=== PATIENT | female | born 1940 | race Caucasian/White ===

== ENCOUNTER 2016-12-11 10:06 | Emergency (ER) | payer OTHER ==
[~2016-12-11 10:06] MED LIST: ALPR0.25 PO; CITA20TA5 PO; ESOM40CA25 PO; MULT1TAB52 PO; MUPI15CR TP; OLME40TA PO; SIMV40TA3 PO; TOPI50TA4 PO; VITA400C36 PO; ZOLP5TAB5 PO
--- NOTE | 2016-12-11 10:34 | ED.ADGEN ---
Past History Past Medical History: GERD, High Cholesterol, Hypertension, Other Past Surgical History: Cholecystectomy, Hysterectomy Smoking: Non-smoker Alcohol Use: None Drug Use: None Adult General HPI HPI Patient is a 76-year-old female presents emergency department complaining of chest pain that occurred 4-5 hours prior to arrival. She is having no pain now. Patient reports that her blood pressure was elevated last night. Then, in the middle of night she woke up with some chest pain. Was nonradiating and had no associated symptoms such as dyspnea, nausea, vomiting, or diaphoresis. She did take an extra blood pressure medication. First thing this morning she called her primary care physician's office and went there. They then sent her to the emergency department. Review of Systems Review of Systems Constitutional: Denies fever or chills [] Eyes: Denies change in visual acuity, redness, or eye pain [] HENT: Denies nasal congestion or sore throat [] Respiratory: Denies cough or shortness of breath [] Cardiovascular: No additional information not addressed in HPI [] GI: Denies abdominal pain, nausea, vomiting, bloody stools or diarrhea [] : Denies dysuria or hematuria [] Musculoskeletal: Denies back pain or joint pain [] Integument: Denies rash or skin lesions [] Neurologic: Denies headache, focal weakness or sensory changes [] Endocrine: Denies polyuria or polydipsia [] Allergies Allergies Allergies Coded Allergies Type Severity Reaction Last Updated Verified Sulfa (Sulfonamide Antibiotics) Allergy Intermediate rash 04/01/14 No tetracycline Allergy Intermediate rash 04/01/14 No Physical Exam Physical Exam Constitutional: Well developed, well nourished, no acute distress, non-toxic appearance. [] HENT: Normocephalic, atraumatic, bilateral external ears normal, oropharynx moist, no oral exudates, nose normal. [] Eyes: PERRLA, EOMI, conjunctiva normal, no discharge. [] Neck: Normal range of motion, no tenderness, supple, no stridor. [] Cardiovascular:Heart rate regular rhythm, no murmur [] Lungs & Thorax: Bilateral breath sounds clear to auscultation [] Abdomen: Bowel sounds normal, soft, no tenderness, no masses, no pulsatile masses. [] Skin: Warm, dry, no erythema, no rash. [] Back: No tenderness, no CVA tenderness. [] Extremities: No tenderness, no cyanosis, no clubbing, ROM intact, no edema. [] Neurologic: Alert and oriented X 3, normal motor function, normal sensory function, no focal deficits noted. [] Psychologic: Affect normal, judgement normal, mood normal. [] Current Patient Data Lab Results Laboratory Tests Test 12/11/16 11:05 12/11/16 11:07 POC Hemoglobin 12.2gm/dL POC Hematocrit 36% POC Sodium 144mmol/L (135-145) POC Potassium 3.9mmol/L (3.5-5.0) POC Chloride 104mmol/L (98-110) POC Total CO2 24mmol/L (23-32) Anion Gap 21mmol/L (6-14) H POC Blood Urea Nitrogen 14mg/dL (8-26) POC Creatinine 1.0mg/dL (0.5-1.4) Glucose Level 97mg/dL (60-99) POC Ionized Calcium ([place]) 1.20mmol/L (1.13-1.32) POC Troponin I 0.00ng/ml (<0.08) EKG EKG EKG interpreted by me, normal sinus rhythm, 70 bpm, left axis, no ST segment elevation. [] Radiology/Procedures Radiology/Procedures Chest x-ray interpreted by me, no acute cardiopulmonary process. [] Course & Med Decision Making Course & Med Decision Making Pertinent Labs and Imaging studies reviewed. (See chart for details) Reassuring workup. Patient remained pain-free during her stay. She was instructed on taking her blood pressure medicine as prescribed. She will follow- up as needed. Return emergency department sooner if she develops new or worsening symptoms. [] Final Impression Final Impression Chest pain [] Problems: Dragon Disclaimer Dragon Disclaimer This electronic medical record was generated, in whole or in part, using a voice recognition dictation system. BRAXTON WINTERS MD Dec 11, 2016 10:34
--- NOTE | 2016-12-11 10:55 | RAD ---
Portable chest, 12/11/2016: History: Chest pain Comparison is made to a study from 12/03/2015. The heart size and pulmonary vascularity are normal. There is tortuosity of the thoracic aorta. No pulmonary infiltrates are seen. There is no evidence of pleural fluid A surgical plate and screws is evident in the lower cervical spine. IMPRESSION: 1. Ectatic aorta. 2. No acute cardiopulmonary abnormality is detected.
[2016-12-11 11:20] VITALS: BP 126/77
[2016-12-11 11:20] LABS: HEMOGLOBIN ISTAT 12.2 gm/dL; POTASSIUM ISTAT 3.9 mmol/L (3.5-5.0)
--- NOTE | 2016-12-11 14:13 | EKG ---
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
== END 2016-12-11 11:40 | disposition home or self-care (01) ==
LOC: ER 10:06
DX: R07.9 Chest pain, unspecified (principal); K21.9 Gastro-esophageal reflux disease without esophagitis; E78.00 Pure hypercholesterolemia, unspecified; I10 Essential (primary) hypertension; Z88.2 Allergy status to sulfonamides; Z88.1 Allergy status to other antibiotic agents
CPT/HCPCS: 71010; 80047; 84484; 93005; 99284-25

== ENCOUNTER → 2017-03-29 | Outpatient (CLI) | payer OTHER ==
[2017-01-26 15:50] VITALS: BP 146/91
[~2017-03-29] MED LIST changes: -OLME40TA PO; +OLME40TA12 PO; -TOPI50TA4 PO; +TOPI50TA8 PO
--- NOTE | 2017-03-29 16:27 | RAD ---
Pelvic ultrasound, 03/29/2017: History: Pelvic pain Transabdominal and transvaginal scans were obtained. The uterus is surgically absent. The ovaries could not be visualized. No pelvic mass or unusual fluid collection is seen. IMPRESSION: 1. Status post hysterectomy. 2. Negative pelvic ultrasound. 3. CT scanning may be useful for more complete evaluation of the pelvis, if clinically indicated.
== END | disposition home or self-care (01) ==
LOC: US 14:48
PROVIDERS: ATTEND Obstetrics & Gynecology
DX: R10.2 Pelvic and perineal pain (principal); Z90.710 Acquired absence of both cervix and uterus
CPT/HCPCS: 76830; 76856

== ENCOUNTER → 2017-07-09 | Outpatient (CLI) | payer MEDICARE, OTHER ==
[2017-01-26 15:50] VITALS: BP 146/91
--- NOTE | 2017-07-09 15:23 | RAD ---
DATE: 07/09/2017 EXAM: MAMMO BHAVESH SCREENING BILATERAL HISTORY: Asymptomatic screening mammogram. COMPARISON: Prior mammograms from 10/06/2015, 05/06/2013 This study was interpreted with the benefit of Computerized Aided Detection (CAD). The breast parenchyma shows scattered fibroglandular densities. Breast parenchyma level B. FINDINGS: Bilateral CC and MLO views of the breasts were performed. Bilateral breast tomosynthesis was performed in CC and MLO projections. Right breast: There are no suspicious microcalcifications, masses or areas of architectural distortion. Right mammogram is stable from prior studies. Left breast: There are no suspicious microcalcifications, masses or areas of architectural distortion. Interval decrease in a circumscribed mass in the lower slightly inner left breast at mid to posterior depth, benign findings. IMPRESSION: Benign findings. Annual screening mammography is recommended. BI-RADS CATEGORY: 2 BENIGN FINDING(S) RECOMMENDED FOLLOW-UP: 12M 12 MONTH FOLLOW-UP PQRS compliance statement: Patient information was entered into a reminder system with a target due date 07/09/2018 for the next mammogram. Mammography is a sensitive method for finding small breast cancers, but it does not detect them all and is not a substitute for careful clinical examination. A negative mammogram does not negate a clinically suspicious finding and should not result in delay in biopsying a clinically suspicious abnormality. "Our facility is accredited by the [employer] Mammography Program."
== END | disposition home or self-care (01) ==
LOC: MAMMO 13:37
PROVIDERS: ATTEND Family Medicine
DX: Z12.31 Encounter for screening mammogram for malignant neoplasm of breast (principal)
CPT/HCPCS: 77063; G0202; 77067

== ENCOUNTER 2017-12-24 13:39 | Observation (INO) | payer OTHER ==
[~2017-12-24] VITALS: Ht 162.6 cm; Wt 63.5 kg
[2017-12-24] MEDS ORDERED: IV NORMAL SALINE 1,000ML 1,000 ML IV SCH (14:08)
[2017-12-24] MEDS ORDERED: 0.9 % SODIUM CHLORIDE 10 ML DISP.SYRIN. IV PRN (14:15)
--- NOTE | 2017-12-24 14:39 | EKG ---
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
[2017-12-24 14:41] LABS: BASO # 0.1 x10^3/uL (0.0-0.2); BASO % 1 % (0-3); EOS % 1 % (0-3); HEMATOCRIT 39.4 % (36.0-47.0); LYMPH # 1.5 x10^3/uL (1.0-4.8); LYMPH % 27 % (24-48); MEAN CORPUSCULAR HEMOGLOBIN 35 pg (25-35); MEAN CORPUSCULAR HGB CONC 35 g/dL (31-37); MEAN CORPUSCULAR VOLUME 97 fL (79-100); MONO # 0.5 x10^3/uL (0.0-1.1); MONO % 9 % (0-9); NEUT # 3.5 x10^3uL (1.8-7.7); NEUT % 63 % (31-73); PLATELET COUNT 253 x10^3/uL (140-400); RED BLOOD COUNT 4.04 x10^6/uL (3.50-5.40); RED CELL DISTRIBUTION WIDTH 12.4 % (11.5-14.5); WHITE BLOOD COUNT 5.5 x10^3/uL (4.0-11.0)
--- NOTE | 2017-12-24 14:43 | RAD ---
Clinical Indication: Mental status change. Technique: Study is dated December 24, 2017. CT images of the head were obtained from the skull base to the vertex without IV contrast. Comparison is from January 26, 2017. One or more of the following individualized dose reduction techniques were utilized for this examination: 1. Automated exposure control 2. Adjustment of the mA and/or kV according to patient size 3. Use of iterative reconstruction technique Findings: There is diffuse, symmetric prominence of the ventricles and subarachnoid spaces consistent with age-related parenchymal volume loss. There are areas of scattered decreased attenuation in the supratentorial white matter. While nonspecific, findings are likely secondary to mild small vessel ischemic disease. There is no hemorrhage, extraaxial fluid collection, mass, or midline shift. There is no large vascular distribution infarct. There are vascular calcifications. The posterior fossa and brainstem are unremarkable. Orbits are normal. The visualized paranasal sinuses are clear. There is no skull fracture appreciated on bone level images. Impression: No acute intracranial findings. Brain parenchymal volume loss and probable small vessel ischemic disease. Critical report was called to Dr. Berger at 1439 hours. Electronically signed by: Gustavo Patel MD (12/24/2017 2:40 PM) [id number]
[2017-12-24 14:55] LABS: ALBUMIN 3.9 g/dL (3.4-5.0); ALBUMIN/GLOBULIN RATIO 1.1 (1.0-1.7); CALCIUM 10.5 mg/dL (8.5-10.1); GFR 53.8; POTASSIUM 3.7 mmol/L (3.5-5.1); TOTAL BILIRUBIN 0.6 mg/dL (0.2-1.0); TOTAL PROTEIN 7.6 g/dL (6.4-8.2)
--- NOTE | 2017-12-24 15:00 | PHYS DOC ---
Past History Past Medical History: GERD, High Cholesterol, Hypertension, UTI Past Surgical History: Cholecystectomy, Hysterectomy Smoking: Non-smoker Alcohol Use: Rarely Drug Use: None Adult General Chief Complaint Chief Complaint: DIZZY/LIGHT HEADED HPI HPI Patient is a pleasant 77-year-old female with a known history of hypertension hyperlipidemia, reflux disease and recurrent UTIs who presents with acute altered mental status changes and shortness of breath. Patient was in her normal state of health at home began having some shortness of breath and laid down on the bed and she felt some confusion as been described as not being oriented where she is remembering the events around the shortness of breath. She denies any chest pain or abdominal pain at the event as far she can remember. She says she feels like she has to take a deep breath and can't catch her breath. She denies any fevers or chills or headache denies any change in vision or change in speech. She is amnestic to the event and she is somewhat confused to the time and date. Patient denies any trauma, denies any recent antibiotics or travel outside the country. Patient had no URI symptoms, no recent fevers or chills. Patient has had no sick contacts or changes in medications. Symptoms began about 30 minutes prior to arrival witnessed by her Review of Systems Review of Systems Constitutional: Denies fever or chills [] Eyes: Denies change in visual acuity, redness, or eye pain [] HENT: Denies nasal congestion or sore throat [] Respiratory: Positive for shortness of breath negative for cough Cardiovascular: No additional information not addressed in HPI [] GI: Denies abdominal pain, nausea, vomiting, bloody stools or diarrhea [] : Denies dysuria or hematuria [] Musculoskeletal: Denies back pain or joint pain [] Integument: Denies rash or skin lesions [] Neurologic: Denies headache, focal weakness or sensory changes changes in mental status include memory issues to the event and no seizure activity witnessed[] Endocrine: Denies polyuria or polydipsia [] All other systems were reviewed and found to be within normal limits, except as documented in this note. Current Medications Current Medications Current Medications Medications (Trade) Dose Ordered Sig/Sweta Start Time Stop Time Status Last Admin Dose Admin Sodium Chloride 1,000 ml @ 1,000 mls/hr Q1H 12/24/17 14:08 12/24/17 15:07 12/24/17 14:41 1,000 MLS/HR Sodium Chloride (Normal Saline Flush) 10 ml QSHIFT PRN 12/24/17 14:15 Allergies Allergies Allergies Coded Allergies Type Severity Reaction Last Updated Verified Sulfa (Sulfonamide Antibiotics) Allergy Intermediate rash 04/01/14 No tetracycline Allergy Intermediate rash 04/01/14 No Physical Exam Physical Exam Constitutional: Well developed, well nourished, no acute distress, non-toxic appearance. [] HENT: Normocephalic, atraumatic, bilateral external ears normal, oropharynx dry with out erythema no tonsillar hypertrophy, no oral exudates, nose normal. [] Eyes: PERRLA, EOMI, conjunctiva normal, no discharge. [] Neck: Normal range of motion, no tenderness, supple, no stridor. [] Cardiovascular:Heart rate regular rhythm, no murmur [] Lungs & Thorax: Bilateral breath sounds clear to auscultation [] Abdomen: Bowel sounds normal, soft, no tenderness, no masses, no pulsatile masses. [] Skin: Warm, dry, no erythema, no rash. [] Back: No tenderness, no CVA tenderness. [] Extremities: No tenderness, no cyanosis, no clubbing, ROM intact, no edema. [] Neurologic: Alert and oriented X 3, normal motor function, normal sensory function, no focal deficits noted. [] Psychologic: Patient seems somewhat confused but only to the event hand approximately her to the ER she is aware of things that began after the event and before the event Center initial presentation my stroke scale recorded at the bedside and states only one based on her inability to answer question correctly about location and time 1a. Level of consciousness: 0 = Alert; keenly responsive. 1 = Not alert; but arousable by minor stimulation to obey, answer, or respond. 2 = Not alert; requires repeated stimulation to attend, or is obtunded and requires strong or painful stimulation to make movements (not stereotyped). 3 = Responds only with reflex motor or autonomic effects or totally unresponsive , flaccid, and areflexic. 1b. LOC questions: 0 = Answers both questions correctly. 1 = Answers one question correctly. 2 = Answers neither question correctly. 1c. LOC commands: 0 = Performs both tasks correctly. 1 = Performs one task correctly. 2 = Performs neither task correctly. 2. Best gaze: 0 = Normal. 1 = Partial gaze palsy; gaze is abnormal in one or both eyes, but forced deviation or total gaze paresis is not present. 2 = Forced deviation, or total gaze paresis not overcome by the oculocephalic maneuver. 3. Visual: 0 = No visual loss. 1 = Partial hemianopia. 2 = Complete hemianopia. 3 = Bilateral hemianopia (blind including cortical blindness). 4. Facial palsy: 0 = Normal symmetrical movements. 1 = Minor paralysis (flattened nasolabial fold, asymmetry on smiling). 2 = Partial paralysis (total or near-total paralysis of lower face). 3 = Complete paralysis of one or both sides (absence of facial movement in the upper and lower face). 5. Motor arm: 0 = No drift; limb holds 90 (or 45) degrees for full 10 seconds. 1 = Drift; limb holds 90 (or 45) degrees, but drifts down before full 10 seconds ; does not hit bed or other support. 2 = Some effort against gravity; limb cannot get to or maintain (if cued) 90 ( or 45) degrees, drifts down to bed, but has some effort against gravity. 3 = No effort against gravity; limb falls. 4 = No movement. UN = Amputation or joint fusion, explain: 5a. Left arm 5b. Right arm 6. Motor le = No drift; leg holds 30-degree position for full 5 seconds. 1 = Drift; leg falls by the end of the 5-second period but does not hit bed. 2 = Some effort against gravity; leg falls to bed by 5 seconds, but has some effort against gravity. 3 = No effort against gravity; leg falls to bed immediately. 4 = No movement. UN = Amputation or joint fusion, explain: 6a. Left leg 6b. Right leg 7. Limb ataxia: 0 = Absent. 1 = Present in one limb. 2 = Present in two limbs. UN = Amputation or joint fusion 8. Sensory: 0 = Normal; no sensory loss. 1 = Udyo-xi-ntlsrtyo sensory loss; patient feels pinprick is less sharp or is dull on the affected side; or there is a loss of superficial pain with pinprick , but patient is aware of being touched. 2 = Severe to total sensory loss; patient is not aware of being touched in the face, arm, and leg. 9. Best language: 0 = No aphasia; normal. 1 = Srhv-mc-qmuukbiz aphasia; some obvious loss of fluency or facility of comprehension, without significant limitation on ideas expressed or form of expression. Reduction of speech and/or comprehension, however, makes conversation about provided materials difficult or impossible. For example, in conversation about provided materials, examiner can identify picture or naming card content from patient's response. 2 = Severe aphasia; all communication is through fragmentary expression; great need for inference, questioning, and guessing by the listener. Range of information that can be exchanged is limited; listener carries burden of communication. Examiner cannot identify materials provided from patient response. 3 = Mute, global aphasia; no usable speech or auditory comprehension. 10. Dysarthria: 0 = Normal. 1 = Lhhv-pp-rfeglgkz dysarthria; patient slurs at least some words and, at worst , can be understood with some difficulty. 2 = Severe dysarthria; patient's speech is so slurred as to be unintelligible in the absence of or out of proportion to any dysphasia, or is mute/anarthric. UN = Intubated or other physical barrier, explain: 11. Extinction and inattention (formerly neglect): 0 = No abnormality. 1 = Visual, tactile, auditory, spatial, or personal inattention or extinction to bilateral simultaneous stimulation in one of the sensory modalities. 2 = Profound sterling-inattention or extinction to more than one modality; does not recognize own hand or orients to only one side of space. Current Patient Data Lab Results Laboratory Tests Test 12/24/17 14:04 12/24/17 14:27 Glucose (Fingerstick) 109 mg/dL (70-99) H White Blood Count 5.5 x10^3/uL (4.0-11.0) Red Blood Count 4.04 x10^6/uL (3.50-5.40) Hemoglobin 14.0 g/dL (12.0-15.5) Hematocrit 39.4 % (36.0-47.0) Mean Corpuscular Volume 97 fL (79-100) Mean Corpuscular Hemoglobin 35 pg (25-35) Mean Corpuscular Hemoglobin Concent 35 g/dL (31-37) Red Cell Distribution Width 12.4 % (11.5-14.5) Platelet Count 253 x10^3/uL (140-400) Neutrophils (%) (Auto) 63 % (31-73) Lymphocytes (%) (Auto) 27 % (24-48) Monocytes (%) (Auto) 9 % (0-9) Eosinophils (%) (Auto) 1 % (0-3) Basophils (%) (Auto) 1 % (0-3) Neutrophils # (Auto) 3.5 x10^3uL (1.8-7.7) Lymphocytes # (Auto) 1.5 x10^3/uL (1.0-4.8) Monocytes # (Auto) 0.5 x10^3/uL (0.0-1.1) Eosinophils # (Auto) 0.0 x10^3/uL (0.0-0.7) Basophils # (Auto) 0.1 x10^3/uL (0.0-0.2) Erythrocyte Sedimentation Rate Pending EKG EKG []EKG read by me, EKG of 2:35 PM demonstrates a sinus rhythm with a P wave there were QRS there is significant left axis deviation very small poor R-wave progression with a AK interval 140 which is normal, QRS width of 86 which is normal, QTC of 423 which is normal, patient is a Q-wave in the anterior leads specifically V1 which may or percent an old anterior ischemic event this is an abnormal EKG but there is no acute ST segment changes consistent with acute cord ischemia at this time Radiology/Procedures Radiology/Procedures [] IMAGING REPORT Signed PATIENT: ABY JONES ACCOUNT: [id number] : 1940 LOCATION: ER AGE: 77 SEX: F EXAM STATUS: REG ER ORD. PHYSICIAN: LORNA HARLEY MD REASON: sob with ams PROCEDURE: CT HEAD WO CONTRAST Clinical Indication: Mental status change. Technique: Study is dated December 24, 2017. CT images of the head were obtained from the skull base to the vertex without IV contrast. Comparison is from January 26, 2017. One or more of the following individualized dose reduction techniques were utilized for this examination: 1. Automated exposure control 2. Adjustment of the mA and/or kV according to patient size 3. Use of iterative reconstruction technique Findings: There is diffuse, symmetric prominence of the ventricles and subarachnoid spaces consistent with age-related parenchymal volume loss. There are areas of scattered decreased attenuation in the supratentorial white matter. While nonspecific, findings are likely secondary to mild small vessel ischemic disease. There is no hemorrhage, extraaxial fluid collection, mass, or midline shift. There is no large vascular distribution infarct. There are vascular calcifications. The posterior fossa and brainstem are unremarkable. Orbits are normal. The visualized paranasal sinuses are clear. There is no skull fracture appreciated on bone level images. Impression: No acute intracranial findings. Brain parenchymal volume loss and probable small vessel ischemic disease. Critical report was called to Dr. Harley at [address] [place] [address] IMAGING REPORT Signed PATIENT: ABY JONES ACCOUNT: [id number] : 1940 LOCATION: ER AGE: 77 SEX: F EXAM STATUS: REG ER ORD. PHYSICIAN: LORNA HARLEY MD REASON: sob PROCEDURE: CHEST AP ONLY INDICATION: Short of air and dizziness. TECHNIQUE: AP portable chest radiograph was obtained. Comparison is from January 26, 2017. FINDINGS: The lungs are clear. The heart is not enlarged. There is no heart failure. There is atheromatous disease in the thoracic aorta. There are degenerative changes in the spine. Leads overlie the patient. Patient's chin obscures part of the left apex. IMPRESSION: No acute thoracic findings. Electronically signed by: Gustavo Patel MD (12/24/2017 3:07 PM) [id number] DICTATED AND SIGNED BY: GUSTAVO PATEL MD DATE: 12/24/17 1506 CC: LORNA HARLEY MD; LYNN DENTON MD ~ Course & Med Decision Making Course & Med Decision Making Pertinent Labs and Imaging studies reviewed. (See chart for details) []Symptoms with acute onset of difficulty breathing and some changes in mental status. It was activated of the code stroke although her only identifiable issue is with memory to the event and disorientation to time and place. Patient has a stroke scale of 1 upon arrival. Given the duration of symptoms patient had a CT scan read by radiology reviewed by me that demonstrated no acute intercranial mass or signs of infection time report was 2:40 PM Patient's stroke scale of 1 and no other symptoms and she's been intermittent for memory issues. I will consult neurology for decision to use TPA or not. Beam House Inspector note Dr. Torres neurology services Beam House Inspector called at of the service service called initially at 3 PM Consult called back at called back at 306 PM Discussed the case I presented and they agreed with admission. We talked about the use utilization of TPA in this case. Based on patient's symptoms and a social when he did not recommended at this time but did admit that a carotid Doppler and teething evaluation for cardiac versus COUTIERIER cause of her memory loss and shortness of breath with very appropriate. Given the fact that we will within the three-hour window for TPA and I agreed his assessment and patient will get an aspirin. She is resting comfortably Laboratory Tests Test 12/24/17 14:04 12/24/17 14:27 12/24/17 15:00 12/24/17 15:20 Glucose (Fingerstick) 109 mg/dL (70-99) H White Blood Count 5.5 x10^3/uL (4.0-11.0) Red Blood Count 4.04 x10^6/uL (3.50-5.40) Hemoglobin 14.0 g/dL (12.0-15.5) Hematocrit 39.4 % (36.0-47.0) Mean Corpuscular Volume 97 fL (79-100) Mean Corpuscular Hemoglobin 35 pg (25-35) Mean Corpuscular Hemoglobin Concent 35 g/dL (31-37) Red Cell Distribution Width 12.4 % (11.5-14.5) Platelet Count 253 x10^3/uL (140-400) Neutrophils (%) (Auto) 63 % (31-73) Lymphocytes (%) (Auto) 27 % (24-48) Monocytes (%) (Auto) 9 % (0-9) Eosinophils (%) (Auto) 1 % (0-3) Basophils (%) (Auto) 1 % (0-3) Neutrophils # (Auto) 3.5 x10^3uL (1.8-7.7) Lymphocytes # (Auto) 1.5 x10^3/uL (1.0-4.8) Monocytes # (Auto) 0.5 x10^3/uL (0.0-1.1) Eosinophils # (Auto) 0.0 x10^3/uL (0.0-0.7) Basophils # (Auto) 0.1 x10^3/uL (0.0-0.2) Erythrocyte Sedimentation Rate 55 (0-25) H D-Dimer (Monik) 0.40 mg/L (0.00-0.50) Sodium Level 138 mmol/L (136-145) Potassium Level 3.7 mmol/L (3.5-5.1) Chloride Level 98 mmol/L (98-107) Carbon Dioxide Level 27 mmol/L (21-32) Anion Gap 13 (6-14) Blood Urea Nitrogen 16 mg/dL (7-20) Creatinine 1.0 mg/dL (0.6-1.0) Estimated GFR (Cockcroft-Gault) 53.8 BUN/Creatinine Ratio 16 (6-20) Glucose Level 105 mg/dL (70-99) H Calcium Level 10.5 mg/dL (8.5-10.1) H Magnesium Level 2.0 mg/dL (1.8-2.4) Total Bilirubin 0.6 mg/dL (0.2-1.0) Aspartate Amino Transferase (AST) 31 U/L (15-37) Alanine Aminotransferase (ALT) 24 U/L (14-59) Alkaline Phosphatase 72 U/L (46-116) Troponin I Quantitative < 0.017 ng/mL (0-0.055) Total Protein 7.6 g/dL (6.4-8.2) Albumin 3.9 g/dL (3.4-5.0) Albumin/Globulin Ratio 1.1 (1.0-1.7) Lactic Acid Level 1.3 mmol/L (0.4-2.0) Urine Collection Type Unknown Urine Color Straw Urine Clarity Clear Urine pH 7.0 Urine Specific [place] 1.010 Urine Protein Neg (NEG-TRACE) Urine Glucose (UA) Neg mg/dL (NEG) Urine Ketones (Stick) 40 mg/dL (NEG) Urine Blood Neg (NEG) Urine Nitrite Neg (NEG) Urine Bilirubin Neg (NEG) Urine Urobilinogen Dipstick 0.2 mg/dL (0.2 mg/dL) Urine Leukocyte Esterase Trace (NEG) Urine RBC 0 /HPF (0-2) Urine WBC Occ /HPF (0-4) Urine Squamous Epithelial Cells Occ /LPF Urine Bacteria 0 /HPF (0-FEW) Patient's CBC, CMP, urinalysis, proBNP, troponin all within normal limits or not significantly abnormal enough to cause symptoms. Patient's calcium level was managed at 10.5 but not high enough to be causing symptoms. Beam House Inspector note: Dr. LEDA WHELAN Beam House Inspector called at of the service service internal medicine called at 3:10 PM Consult called back at 3:10 PM Discussed the case I presented and they agreed with admission. Time of acceptance 3:10 PM "I have assessed this patient clinically and believe that their condition requires an admission to the hospital. After consulting the admitting physician about this case, they have asked that I admit this patient to their service as an inpatient based on the clinical presentation and my impression." Impression: Dizziness, altered mental status memory issues, Dragon Disclaimer Dragon Disclaimer This electronic medical record was generated, in whole or in part, using a voice recognition dictation system. Departure Departure: Impression: Primary Impression: Dyspnea Additional Impressions: Dizziness Altered mental status Disposition: ADMITTED INPATIENT Admitting Physician: Yovany Weber Condition: GUARDED Referrals: LYNN DENTON MD (PCP) Problem Qualifiers LORNA HARLEY MD Dec 24, 2017 15:00
--- NOTE | 2017-12-24 15:10 | RAD ---
INDICATION: Short of air and dizziness. TECHNIQUE: AP portable chest radiograph was obtained. Comparison is from January 26, 2017. FINDINGS: The lungs are clear. The heart is not enlarged. There is no heart failure. There is atheromatous disease in the thoracic aorta. There are degenerative changes in the spine. Leads overlie the patient. Patient's chin obscures part of the left apex. IMPRESSION: No acute thoracic findings. Electronically signed by: Gustavo Patel MD (12/24/2017 3:07 PM) [id number]
[2017-12-24 15:43] LABS: SEDIMENTATION RATE 55 (0-25)
[2017-12-24 15:46] LABS: BACTERIA,URINE 0 /HPF (0-FEW); BILIRUBIN,URINE NEG (NEG); CLARITY,URINE CLEAR; COLOR,URINE STRAW; GLUCOSE,URINE NEG (NEG); NITRITE,URINE NEG (NEG); RBC,URINE 0 /HPF (0-2); SQUAMOUS EPITHELIAL CELL,UR OCC /LPF; UROBILINOGEN,URINE 0.2 mg/dL (0.2 mg/dL); WBC,URINE OCC /HPF (0-4)
[2017-12-24] MEDS ORDERED: ONDANSETRON PF 4 MG/2 ML VIAL. IV PRN (16:00)
[2017-12-24] MEDS ORDERED: ACETAMINOPHEN 325 MG TABLET PO PRN ×2 (16:00→19:15)
[2017-12-24 19:09] VITALS: BP 151/90
[2017-12-24] MEDS ORDERED: RANI150T2 PO (19:15)
[2017-12-24] MEDS ORDERED: LISI1TAB5 PO (19:15)
[2017-12-24] MEDS ORDERED: DONE10TA7 PO (19:15)
[2017-12-24] MEDS ORDERED: IBUPROFEN 800 MG TABLET. PO PRN (19:30)
[2017-12-24] MEDS ORDERED: ZOLPIDEM 5 MG TABLET. PO PRN (19:30)
[2017-12-24] MEDS ORDERED: ALPRAZolam 0.25 MG TABLET PO PRN (19:30)
[2017-12-24] MEDS: IV NORMAL SALINE 1,000ML 1,000 ML IV SCH (20:51)
[2017-12-24] MEDS ORDERED: DONEPEZIL HCL 10 MG TABLET PO SCH (21:00)
[2017-12-24] MEDS ORDERED: CYCLOBENZAPRINE 10 MG TABLET. PO ONE (21:45)
[2017-12-24 23:00] VITALS: BP 117/63
--- NOTE | 2017-12-24 23:33 | RAD ---
Indication: Neck pain, headache. TECHNIQUE: CT cervical spine without IV contrast COMPARISON: None FINDINGS: Cervical spine is in normal anatomic alignment. Status post anterior fusion at C4-C6 with discectomy and disc prosthesis. Atlantoaxial joint interval is preserved. No acute fractures. Segmental analysis: C2-C3: Mild central disc protrusion indenting anterior thecal sac. No facet arthropathy. No neuroforamina narrowing. C3-C4: No significant disc bulge or herniation. Severe left and moderate right facet arthropathy. Severe left neuroforamina narrowing. C4-C5: Mild central disc protrusion indenting anterior thecal sac. Mild bilateral facet arthropathy. No neuroforamina narrowing. C5-C6: No disc bulge or herniation. Moderate bilateral facet arthropathy. Severe left and mild right neuroforamina narrowing. C6-C7: No disc bulge or herniation. Moderate bilateral facet arthropathy. Moderate left neuroforamina narrowing. Prevertebral soft tissue within normal limits. Visualized bases are clear. No enlarged cervical lymphadenopathy. IMPRESSION: 1. Multilevel degenerative disc disease with facet arthropathy causing varying amount of neural foramina narrowing as described above. Electronically signed by: Umair Casey DO (12/24/2017 11:29 PM) [facility]
--- NOTE | 2017-12-25 02:24 | CONS ---
DATE OF CONSULTATION: 12/24/2017 NEUROLOGY CONSULTATION REFERRING PHYSICIAN: Dr. Weber. REASON FOR CONSULTATION: Severe headaches and dizziness. HISTORY OF PRESENT ILLNESS: This is a 77-year-old right-handed female who was admitted through Emergency Room after she presented with chief complaints of intermittent confusion, chronic daily headaches and dizziness along with shortness of breath. The symptoms began at home shortly before she arrived to the hospital. She described chronic bilateral temporal daily headaches. She denies nausea, vomiting, photophobia or phonophobia. The patient has been on Topamax for several years, but she denies history of migraine headaches. The patient also complains of intermittent confusion with a history of dementia and memory loss. She also complains of intermittent dizziness described as unsteadiness mainly when she changes her body positions quickly. The patient denies any recent head injuries or fall. She denies visual disturbances, weakness, numbness or paresthesia, bowel or bladder dysfunctions or lower back pain. She denies any other medical or neurological complaints. PAST MEDICAL HISTORY: Significant for hypertension, hyperlipidemia, chronic daily headaches, gastroesophageal reflux disease, diverticulosis and diverticulitis, history of coronary artery disease, and TIA. History of dementia. Depressions and anxiety. SOCIAL HISTORY: The patient lives with her . PAST SURGICAL HISTORY: Significant for cholecystectomy, bladder suspensions and cataract extraction. FAMILY HISTORY: The patient is . She lives with her at home. She denies smoking, but she drinks alcohol occasionally. CURRENT HOME MEDICATIONS: Hydrochlorothiazide 12.5 mg daily, vitamin E 400 units daily, Topamax 50 mg daily, Pepcid 20 mg daily, lisinopril 20 mg daily, simvastatin 40 mg daily, Celexa 20 mg daily, aspirin 81 mg daily, donepezil 10 mg at bedtime, ibuprofen 800 mg q. 8 hours p.r.n. for neck pain, Ambien 5 mg at bedtime, alprazolam 0.25 mg p.r.n. t.i.d. for anxiety, Tylenol. ALLERGIES: SULFA DRUGS AND TETRACYCLINE. REVIEW OF SYSTEMS: A 10-point review of system was performed and consistent with intermittent dizziness, chronic daily headaches, shortness of breath and intermittent confusion. Otherwise, as mentioned above in history of present illness. PHYSICAL EXAMINATION: GENERAL: Well-developed, well-nourished white female, not in acute distress. She weighs 140 pounds with height 64 inches. VITAL SIGNS: Blood pressure 151/90, respiratory rate 20, pulse is 68 regular, oxygen saturation is 100% on room air. Afebrile. HEENT: Normocephalic, atraumatic, otherwise unremarkable. NECK: Supple. Negative for carotid bruit, lymphadenopathy or thyromegaly. LUNGS: Clear to A and P. CARDIOVASCULAR: Regular rhythm. Normal S1, S2. There is no S3, S4 or murmur. ABDOMEN: Soft. Bowel sounds positive. EXTREMITIES: Negative for cyanosis, clubbing or pitting edema. NEUROLOGICAL: Mental Status: The patient is alert and oriented x 2. The speech is fluent. There is no language dysfunction. The patient recalls 1/3 after 1 and 3 minutes. Judgment and abstracting thinking are fair. The patient denies hallucination or delusion. There is no language dysfunction. Cranial nerves: Visual amos are full. The pupils are reactive to light and accommodation. The extraocular movements are intact. There is no nystagmus. There is no facial motor or sensory deficit. Hearing is intact bilaterally. The palate is elevated symmetrically. Sternocleidomastoid muscles are powerful bilaterally. The patient shrugs her shoulders symmetrically, protrudes her tongue in the midline without fasciculation or atrophy. Motor: No focal muscle bulk was seen. The tone is normal. The strength is 5/5 throughout. Sensory: Revealed normal pinprick, light touch, vibratory and position senses. Deep tendon reflexes were symmetric and active without pathology responses. Gait and coordination are normal. LABORATORY DATA: CBC revealed white blood cells of 5500, hemoglobin 14, hematocrit 39.4, platelet count 253,000. Chemistry revealed sodium of 138, potassium 3.7, chloride 98, CO2 27, BUN 16, creatinine 1, glucose 105. Calcium is 10.5. Liver enzymes are normal. Troponin level is less than 0.017. Urinalysis, trace urine leukocyte esterase with occasional white blood cells. D-dimer is 0.4. DIAGNOSTIC: Initial nonenhanced head CT scan revealed no acute intracranial process, but showed parenchymal volume loss with small vessel ischemic disease. A chest x-ray revealed no acute cardiopulmonary process. Carotid Doppler study is pending. IMPRESSION: 1. Intermittent confusion. 2. Chronic daily headaches. 3. Dizziness, described as unsteadiness mainly when she changed her body positions quickly. 4. Multiple medical problems include hypertension, hyperlipidemia, history of dementia and gastroesophageal reflux disease. 5. Hypercalcemia. RECOMMENDATIONS: 1. We will discontinue topiramate. 2. Tylenol and nonsteroidal anti-inflammatory drugs for headaches. 3. Start patient on cyclobenzaprine like Flexeril 5 mg daily. 4. We will obtain C-spine CT scan. Await for carotid Doppler study. M Diego BRITTON MD DR: CHANEL/kris JOB#: [id number] / [id number]
[2017-12-25] MEDS: IV NORMAL SALINE 1,000ML 1,000 ML IV SCH (02:59)
[2017-12-25 03:00] VITALS: BP 113/68
[2017-12-25 06:43] LABS: BASO % 1 % (0-3); EOS # 0.1 x10^3/uL (0.0-0.7); EOS % 3 % (0-3); HEMATOCRIT 34.9 % (36.0-47.0); HEMOGLOBIN 12.6 g/dL (12.0-15.5); LYMPH # 2.1 x10^3/uL (1.0-4.8); LYMPH % 49 % (24-48); MEAN CORPUSCULAR HEMOGLOBIN 35 pg (25-35); MEAN CORPUSCULAR HGB CONC 36 g/dL (31-37); MEAN CORPUSCULAR VOLUME 97 fL (79-100); MONO # 0.4 x10^3/uL (0.0-1.1); MONO % 10 % (0-9); NEUT # 1.6 x10^3uL (1.8-7.7); NEUT % 37 % (31-73); PLATELET COUNT 212 x10^3/uL (140-400); RED BLOOD COUNT 3.59 x10^6/uL (3.50-5.40); WHITE BLOOD COUNT 4.3 x10^3/uL (4.0-11.0)
[2017-12-25 06:51] LABS: ALBUMIN 3.3 g/dL (3.4-5.0); ALBUMIN/GLOBULIN RATIO 1.1 (1.0-1.7); CALCIUM 8.8 mg/dL (8.5-10.1); GFR 53.8; POTASSIUM 3.2 mmol/L (3.5-5.1); TOTAL BILIRUBIN 0.4 mg/dL (0.2-1.0); TOTAL PROTEIN 6.4 g/dL (6.4-8.2)
--- NOTE | 2017-12-25 07:41 | RAD ---
Carotid ultrasound, 12/24/2017: History: Dizziness, short-term memory loss Duplex evaluation of the carotid arteries in the neck was performed including grayscale, color flow and spectral Doppler analysis. There is minimal intimal thickening in the common carotid arteries and smooth plaquing at the carotid bifurcations. The proximal internal carotid arteries are moderately tortuous. The peak systolic velocity in the right internal carotid artery is 74 cm/s with an end-diastolic velocity of 32 cm/s. This yields an internal carotid to common carotid artery ratio of 1.1. The peak systolic velocity in the left internal carotid artery is 72 cm per sec with an end-diastolic velocity of 28 cm/s. This also yields an internal carotid to common carotid artery ratio 1.1. These Doppler findings do not suggest significant stenosis. Antegrade flow is present in both vertebral arteries in the neck. IMPRESSION: Minimal smooth plaquing at both carotid bifurcations with no duplex evidence of significant stenosis. Note: Stenosis calculations for CTA, MRA and conventional angiography are based upon determination of the distal ICA diameter in accordance with the NASCET methodology. Stenosis calculations for Doppler studies are derived from validated velocity criteria which are known to correlate with NASCET methodology of determining stenosis.
[2017-12-25] MEDS ORDERED: ASPIRIN 81 MG TAB.CHEW PO SCH (08:00)
[2017-12-25] MEDS ORDERED: hydroCHLOROthiazide 12.5 MG CAPSULE PO SCH (09:00)
[2017-12-25] MEDS ORDERED: TOPIRAMATE 25 MG TABLET. PO SCH (09:00)
[2017-12-25] MEDS ORDERED: FAMOTIDINE 20 MG TABLET PO SCH (09:00)
[2017-12-25] MEDS ORDERED: CITALOPRAM 20 MG TABLET. PO SCH (09:00)
[2017-12-25] MEDS ORDERED: SIMVASTATIN 40 MG TABLET. PO SCH (09:00)
[2017-12-25] MEDS ORDERED: LISINOPRIL 20 MG TABLET PO SCH (09:00)
[2017-12-25] MEDS ORDERED: CYCLOBENZAPRINE 10 MG TABLET. PO SCH (09:00)
[2017-12-25] MEDS ORDERED: VITAMIN E. 400 UNIT CAPSULE. PO SCH (09:00)
--- NOTE | 2017-12-25 10:57 | PN ---
DATE: 12/25/2017 SUBJECTIVE: The patient continues to have localized neck pain and bitemporal frontal headaches. She denies nausea, vomiting, photophobia and phonophobia. OBJECTIVE: GENERAL: Well-developed, well-nourished white female in no acute distress. VITAL SIGNS: Blood pressure 115/68, respiratory 18, pulse is 64, temperature is 98.3, oxygen saturation 96% on room air. HEENT: Normocephalic, atraumatic, otherwise unremarkable. NECK: Supple. Negative for carotid bruit, lymphadenopathy or thyromegaly. LUNGS: Clear to A and P. CARDIOVASCULAR: Regular rate and rhythm. S1, S2. ABDOMEN: Soft, bowel sounds positive. EXTREMITIES: Negative for cyanosis, clubbing, edema. NEUROLOGIC: MENTAL STATUS: The patient is alert and oriented x 3. The speech is fluent. There is no language dysfunction. The patient recalls 2/3 immediately and after 1 and 3 minutes. Judgment and abstracting thinking are normal. The patient denies hallucination or delusion. Cranial nerves are intact. No focal motor or sensory deficits. Deep tendon reflexes were symmetric and active without pathologic responses. Gait not tested. IMPRESSION: 1. Chronic neck pain, status post C4-C5 cervical fusion. The cervical spine CT scan done yesterday revealed degenerative disk disease at multiple levels without acute cervical spine herniation or significant spinal stenosis. 2. Chronic headaches and not migraine. 3. Multiple medical problems including severe anxiety, depressions, gastroesophageal reflux, arthritis, hypertension and hyperlipidemia. 5. Moderate dementia. The patient some left AMA. PLAN: Continue with current management and home medications. Follow up in Neurology Clinic within 2 weeks. M Diego BRITTON MD DR: CHANEL/kris JOB#: [id number] / [id number]
== END 2017-12-25 08:45 | disposition left against medical advice (07) ==
LOC: ER 13:39 → INTOOBSV 15:55 → ICU 15:55
PROVIDERS: ADMIT Internal Medicine; ATTEND Internal Medicine
DX: M50.30 Other cervical disc degeneration, unspecified cervical region (principal); G89.29 Other chronic pain; R51 Headache; F41.9 Anxiety disorder, unspecified; E78.00 Pure hypercholesterolemia, unspecified; F03.90 Unspecified dementia, unspecified severity, without behavioral disturbance, psychotic disturbance, mood disturbance, and anxiety; E78.5 Hyperlipidemia, unspecified; I10 Essential (primary) hypertension; I25.10 Atherosclerotic heart disease of native coronary artery without angina pectoris; K21.9 Gastro-esophageal reflux disease without esophagitis; M19.90 Unspecified osteoarthritis, unspecified site; Z86.73 Personal history of transient ischemic attack (TIA), and cerebral infarction without residual deficits; Z87.440 Personal history of urinary (tract) infections
CPT/HCPCS: 36415; 70450; 71045; 72125; 80048; 80053; 81001; 82947; 83605; 83735; 84443; 84484; 85025; 85379; 85651; 87641; 93005; 93880; 96360; 96361; 99285; G0378; G0379; J7030

== ENCOUNTER 2018-01-22 09:59 | Emergency (ER) | payer OTHER ==
[~2018-01-22 09:59] MED LIST changes: -CITA20TA5 PO; +CITA20TA6 PO; +DONE10TA7 PO; +LISI1TAB5 PO; +RANI150T2 PO
[2018-01-22 11:30] VITALS: BP 176/111
[2018-01-22] MEDS ORDERED: ASPIRIN 81 MG TAB.CHEW PO ONE (11:30)
--- NOTE | 2018-01-22 11:34 | PHYS DOC ---
Past History Past Medical History: Hypertension Past Surgical History: Hysterectomy Smoking: Non-smoker Alcohol Use: Rarely Drug Use: None Adult General Chief Complaint Chief Complaint: CHEST PAIN HPI HPI 77-year-old female patient complaining of sudden onset of substernal sharp pain that woke him up at 9 AM as a constant pain with radiation to her back that getting worse with movement and associated with shortness of breath. Patient denies palpitation, dizziness, nausea and vomiting, focal neuro deficit. Patient denies history of injury to her chest but later on she remembered that she didn't be physical activity yesterday and thinks her pain is related to that activity. She said the chest pain was 9/10 that subsided at arrival to ER and and denies any chest pain in emergency room. Review of Systems Review of Systems Constitutional: Denies fever or chills [] Eyes: Denies change in visual acuity, redness, or eye pain [] HENT: Denies nasal congestion or sore throat [] Respiratory: Denies cough or shortness of breath [] Cardiovascular: No additional information not addressed in HPI [] GI: Denies abdominal pain, nausea, vomiting, bloody stools or diarrhea [] : Denies dysuria or hematuria [] Musculoskeletal: Denies back pain or joint pain [] Integument: Denies rash or skin lesions [] Neurologic: Denies headache, focal weakness or sensory changes [] Endocrine: Denies polyuria or polydipsia [] All other systems were reviewed and found to be within normal limits, except as documented in this note. Current Medications Current Medications Current Medications Medications (Trade) Dose Ordered Sig/[facility] Start Time Stop Time Status Last Admin Dose Admin Aspirin (Children'S Aspirin) 324 mg 1X ONCE 01/22/18 11:15 01/22/18 11:16 UNV Allergies Allergies Allergies Coded Allergies Type Severity Reaction Last Updated Verified Sulfa (Sulfonamide Antibiotics) Allergy Intermediate rash 04/01/14 No tetracycline Allergy Intermediate rash 04/01/14 No Physical Exam Physical Exam Constitutional: Well developed, well nourished, no acute distress, non-toxic appearance. [] HENT: Normocephalic, atraumatic, bilateral external ears normal, oropharynx moist, no oral exudates, nose normal. [] Eyes: PERRLA, EOMI, conjunctiva normal, no discharge. [] Neck: Normal range of motion, no tenderness, supple, no stridor. [] Cardiovascular:Heart rate regular rhythm, no murmur [] Lungs & Thorax: Bilateral breath sounds clear to auscultation [] Abdomen: Bowel sounds normal, soft, no tenderness, no masses, no pulsatile masses. [] Skin: Warm, dry, no erythema, no rash. [] Back: No tenderness, no CVA tenderness. [] Extremities: No tenderness, no cyanosis, no clubbing, ROM intact, no edema. [] Neurologic: Alert and oriented X 3, normal motor function, normal sensory function, no focal deficits noted. [] Psychologic: Affect normal, judgement normal, mood normal. [] Current Patient Data Vital Signs Vital Signs Date Time Temp Pulse Resp B/P (MAP) Pulse Ox O2 Delivery O2 Flow Rate FiO2 01/22/18 10:00 98.0 64 16 98 Room Air Lab Results Laboratory Tests Test 01/22/18 10:20 Lipase 131 U/L ([id number]) EKG EKG EKG interpreted by me. 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 Radiology/Procedures Radiology/Procedures [] Course & Med Decision Making Course & Med Decision Making Pertinent Labs reviewed. (See chart for details) Dilution of patient in ER showed 77-year-old female patient with complaining of substernal chest pain that is up at arrival to ER. Patient remembers that she did some physical activity and didn't want to have any more evaluation in ER and refused to have ultrasound of gallbladder and chest x-ray. Patient psychiatric to take [id number] ibuprofen and Tylenol as needed for pain and follow up with her primary care physician. [] Dragon Disclaimer Dragon Disclaimer This electronic medical record was generated, in whole or in part, using a voice recognition dictation system. Departure Departure: Impression: Primary Impression: Musculoskeletal chest pain Disposition: HOME, SELF-CARE (At 1130) Condition: STABLE Referrals: LYNN DENTON MD (PCP) Patient Instructions: Chest Wall Pain Additional Instructions: Follow-up with your primary care physician in 3-5 days Return to ER if not getting better ROBBI VAZQUEZ MD January 22, 2018 11:34
== END 2018-01-22 11:30 | disposition home or self-care (01) ==
LOC: ER 09:59
DX: R07.89 Other chest pain (principal); I10 Essential (primary) hypertension; Z88.2 Allergy status to sulfonamides; Z88.1 Allergy status to other antibiotic agents
CPT/HCPCS: 36415; 83690; 93005; 99285-25

== ENCOUNTER → 2018-03-04 | Outpatient (CLI) | payer OTHER ==
--- NOTE | 2018-03-05 16:24 | RAD ---
EXAM: Right hip, 2 views. HISTORY: Pain. COMPARISON: None. FINDINGS: Frontal and frog-leg views of the right hip are obtained. There is no fracture, dislocation or subluxation. IMPRESSION: No acute osseous finding. Electronically signed by: Ольга Appiah MD (03/05/2018 4:20 PM) [place] [id number]
== END | disposition home or self-care (01) ==
LOC: RAD 16:09
PROVIDERS: ATTEND Family Medicine
DX: M25.551 Pain in right hip (principal)
CPT/HCPCS: 73502

== ENCOUNTER → 2018-05-01 | Outpatient (CLI) | payer OTHER ==
--- NOTE | 2018-05-02 12:22 | RAD ---
DATE: 05/01/2018 EXAM: DIGITAL DIAGNOSTIC BILATERAL, ultrasound BREAST LEFT HISTORY: Left breast pain COMPARISON: 07/09/2017 Bilateral full field craniocaudal and mediolateral oblique images were obtained using digital technique. This study was interpreted with the benefit of Computerized Aided Detection (CAD). The breast parenchyma shows scattered fibroglandular densities. Breast parenchyma level B. MAMMOGRAM FINDINGS: Benign calcifications are present. No suspicious new masses, microcalcifications or architectural distortion is present to suggest malignancy in either breast. The visualized axillae are unremarkable. Given left breast pain ultrasound was performed. ULTRASOUND FINDINGS: Ultrasound was performed from the 2:00-5:00 position. No definite sonographic abnormality or mass was identified. IMPRESSION: No mammographic evidence of malignancy. BI-RADS CATEGORY: 2 BENIGN FINDING(S) RECOMMENDED FOLLOW-UP: 12M 12 MONTH FOLLOW-UP Annual screening mammography is recommended, unless clinically indicated sooner based on symptoms or change in physical exam.Clinical management of the patient's report symptoms of breast pain is recommended based on followup examination and assessment. PQRS compliance statement: Patient information was entered into a reminder system with a target due date for the next mammogram. Mammography is a sensitive method for finding small breast cancers, but it does not detect them all and is not a substitute for careful clinical examination. A negative mammogram does not negate a clinically suspicious finding and should not result in delay in biopsying a clinically suspicious abnormality. "Our facility is accredited by the [employer] Mammography Program."
== END | disposition home or self-care (01) ==
LOC: MAMMO 10:50
PROVIDERS: ATTEND Family Medicine
DX: R92.1 Mammographic calcification found on diagnostic imaging of breast (principal); I10 Essential (primary) hypertension; E78.5 Hyperlipidemia, unspecified; E78.00 Pure hypercholesterolemia, unspecified; F41.9 Anxiety disorder, unspecified; I25.10 Atherosclerotic heart disease of native coronary artery without angina pectoris; K21.9 Gastro-esophageal reflux disease without esophagitis; F32.9 Major depressive disorder, single episode, unspecified; G43.909 Migraine, unspecified, not intractable, without status migrainosus; Z88.2 Allergy status to sulfonamides; Z90.49 Acquired absence of other specified parts of digestive tract; Z88.1 Allergy status to other antibiotic agents
CPT/HCPCS: 76641; 77066

== ENCOUNTER 2018-05-10 10:15 | Emergency (ER) | payer OTHER ==
[~2018-05-10] VITALS: Ht 162.6 cm; Wt 63.7 kg
--- NOTE | 2018-05-10 10:34 | PHYS DOC ---
Past History Past Medical History: Hypertension Past Surgical History: Hysterectomy Smoking: Non-smoker Alcohol Use: Rarely Drug Use: None Adult General Chief Complaint Chief Complaint: HYPERTENSION HPI HPI 78-year-old female presents with headache. Patient states that she has had worsening headaches last few days. Today is worse than any other day. She's been having intermittent headaches for the last few months that start in her also. And radiated into the top of her head on top of her neck. She thought there were tension headaches, but she is worried it could be related to blood pressure. Her blood pressure is elevated. She stopped taking lisinopril about a year ago because her blood pressure was too low. She is not currently taking any blood pressure medications. She denies fever, chills, cough, congestion, chest pain, shortness of breath, nausea, vomiting, diarrhea, abdominal pain. She does not have any visual disturbances or change in hearing. Review of Systems Review of Systems Constitutional: Denies fever or chills [] Eyes: Denies change in visual acuity, redness, or eye pain [] HENT: Denies nasal congestion or sore throat [] Respiratory: Denies cough or shortness of breath [] Cardiovascular: No additional information not addressed in HPI [] GI: Denies abdominal pain, nausea, vomiting, bloody stools or diarrhea [] : Denies dysuria or hematuria [] Musculoskeletal: Denies back pain or joint pain [] Integument: Denies rash or skin lesions [] Neurologic: Occipital headache [] Endocrine: Denies polyuria or polydipsia [] All other systems were reviewed and found to be within normal limits, except as documented in this note. Allergies Allergies Allergies Coded Allergies Type Severity Reaction Last Updated Verified Sulfa (Sulfonamide Antibiotics) Allergy Intermediate rash 04/01/14 No tetracycline Allergy Intermediate rash 04/01/14 No Physical Exam Physical Exam Constitutional: Well developed, well nourished, no acute distress, non-toxic appearance. [] HENT: Normocephalic, atraumatic, bilateral external ears normal, oropharynx moist, no oral exudates, nose normal. [] Eyes: PERRLA, EOMI, conjunctiva normal, no discharge. [] Neck: Normal range of motion, no tenderness, supple, no stridor. [] Cardiovascular:Heart rate regular rhythm, no murmur [] Lungs & Thorax: Bilateral breath sounds clear to auscultation [] Abdomen: Bowel sounds normal, soft, no tenderness, no masses, no pulsatile masses. [] Skin: Warm, dry, no erythema, no rash. [] Back: No tenderness, no CVA tenderness. [] Extremities: No tenderness, no cyanosis, no clubbing, ROM intact, no edema. [] Neurologic: Alert and oriented X 3, normal motor function, normal sensory function, no focal deficits noted. Seems unsure of the timeline of some of the things in her story such as when she stopped her medication for blood pressure and how long she's been having headaches.[] Psychologic: Affect normal, judgement normal, mood normal. [] EKG EKG [] Radiology/Procedures Radiology/Procedures [] Impressions: EXAM: Head CT without contrast. HISTORY: Headache and dizziness. TECHNIQUE: Computed tomographic images of the head were obtained without contrast. *One or more of the following individualized dose reduction techniques were utilized for this examination: 1. Automated exposure control. 2. Adjustment of the mA and/or kV according to patient size. 3. Use of iterative reconstruction technique. COMPARISON: 12/24/2017. FINDINGS: There is no hemorrhage. There is no mass effect or midline shift. There is ventricular enlargement due to cerebral atrophy. There is decreased attenuation within the cerebral white matter, a nonspecific finding likely due to chronic small vessel disease. The orbits, paranasal sinuses mastoid air cells are unremarkable. No suspicious calvarial lesion is seen. IMPRESSION: 1. No acute intracranial finding. 2. Decreased attenuation within the cerebral white matter, a nonspecific finding which can be seen with chronic small vessel disease. 3. Cerebral volume loss. Electronically signed by: Ольга Appiah MD (05/10/2018 10:48 AM) [facility] Course & Med Decision Making Course & Med Decision Making Pertinent Labs and Imaging studies reviewed. (See chart for details) The patient's labs are unremarkable. Her head CT is negative for acute findings. I will treat her headache with the migraine cocktail of 1 L normal saline, 30 mg Toradol, 25 mg Benadryl, 10 mg Reglan. We will also give her clonidine for her blood pressure. After this treatment, the patient is significantly improved. Her headache has resolved. Her blood pressure is 120/ 54. I will prescribe lisinopril 10 mg to the patient so she can begin to take this until she sees her PCP for further hypertension management. She is stable for discharge at this time. [] Dragon Disclaimer Dragon Disclaimer This electronic medical record was generated, in whole or in part, using a voice recognition dictation system. Departure Departure: Referrals: LYNN DENTON MD (PCP) Scripts Lisinopril (LISINOPRIL) 10 Mg Tablet 1 TAB PO DAILY, #30 TAB 0 Refills Prov: BERE PEREZ DO 05/10/18 BERE PEREZ DO May 10, 2018 10:34
[2018-05-10 10:50] LABS: BASO # 0.1 x10^3/uL (0.0-0.2); BASO % 1 % (0-3); EOS # 0.2 x10^3/uL (0.0-0.7); EOS % 4 % (0-3); HEMATOCRIT 41.1 % (36.0-47.0); HEMOGLOBIN 14.4 g/dL (12.0-15.5); LYMPH # 1.2 x10^3/uL (1.0-4.8); LYMPH % 32 % (24-48); MEAN CORPUSCULAR HEMOGLOBIN 34 pg (25-35); MEAN CORPUSCULAR HGB CONC 35 g/dL (31-37); MEAN CORPUSCULAR VOLUME 98 fL (79-100); MONO # 0.4 x10^3/uL (0.0-1.1); MONO % 9 % (0-9); NEUT # 2.1 x10^3uL (1.8-7.7); NEUT % 54 % (31-73); PLATELET COUNT 234 x10^3/uL (140-400); RED CELL DISTRIBUTION WIDTH 12.7 % (11.5-14.5); WHITE BLOOD COUNT 3.9 x10^3/uL (4.0-11.0)
--- NOTE | 2018-05-10 10:51 | RAD ---
EXAM: Head CT without contrast. HISTORY: Headache and dizziness. TECHNIQUE: Computed tomographic images of the head were obtained without contrast. *One or more of the following individualized dose reduction techniques were utilized for this examination: 1. Automated exposure control. 2. Adjustment of the mA and/or kV according to patient size. 3. Use of iterative reconstruction technique. COMPARISON: 12/24/2017. FINDINGS: There is no hemorrhage. There is no mass effect or midline shift. There is ventricular enlargement due to cerebral atrophy. There is decreased attenuation within the cerebral white matter, a nonspecific finding likely due to chronic small vessel disease. The orbits, paranasal sinuses mastoid air cells are unremarkable. No suspicious calvarial lesion is seen. IMPRESSION: 1. No acute intracranial finding. 2. Decreased attenuation within the cerebral white matter, a nonspecific finding which can be seen with chronic small vessel disease. 3. Cerebral volume loss. Electronically signed by: Ольга Appiah MD (05/10/2018 10:48 AM) [facility]
[2018-05-10 11:07] LABS: ALBUMIN 3.8 g/dL (3.4-5.0); CALCIUM 9.5 mg/dL (8.5-10.1); GFR 53.6; TOTAL BILIRUBIN 0.6 mg/dL (0.2-1.0); TOTAL PROTEIN 7.6 g/dL (6.4-8.2)
[2018-05-10] MEDS: diphenhydrAMINE 50 MG/ML VIAL IVP ONE (11:44)
[2018-05-10] MEDS: IV NORMAL SALINE 1,000ML 1,000 ML IV ONE (11:44)
[2018-05-10] MEDS: METOCLOPRAMIDE HCL 10 MG/2 ML VIAL. IV ONE (11:45)
[2018-05-10 11:46] VITALS: BP 161/91
[2018-05-10] MEDS: cloNIDine HCL 0.1 MG TABLET PO ONE (11:46)
[2018-05-10] MEDS: KETOROLAC 30 MG/ML VIAL. IV ONE (11:46)
[2018-05-10] MEDS ORDERED: LISI10TA2 PO (12:37)
== END 2018-05-10 12:55 | disposition home or self-care (01) ==
LOC: ER 10:15
DX: R51 Headache (principal); R42 Dizziness and giddiness; I10 Essential (primary) hypertension; Z88.2 Allergy status to sulfonamides; Z88.1 Allergy status to other antibiotic agents
CPT/HCPCS: 36415; 70450; 80053; 85025; 96361; 96374; 96375; J1200; J1885; J2765; 99285-25; J7030

== ENCOUNTER 2018-10-09 11:43 | Emergency (ER) | payer OTHER ==
[~2018-10-09] VITALS: Ht 162.6 cm; Wt 63.7 kg
[~2018-10-09 11:43] MED LIST changes: +BRIM5DRO2 OU; +LISI10TA2 PO; +LISI1TAB3 PO
[2018-10-09] MEDS ORDERED: ASPIRIN 81 MG TAB.CHEW PO ONE (12:20)
--- NOTE | 2018-10-09 12:21 | RAD ---
EXAM: Chest, single view. HISTORY: Chest pain. COMPARISON: 05/20/2018 FINDINGS: A frontal view of the chest is obtained. There is no infiltrate, pleural effusion or pneumothorax. The heart is normal in size. There is cervical spinal fusion instrumentation. IMPRESSION: No acute pulmonary finding. Electronically signed by: Ольга Appiah MD (10/09/2018 12:16 PM) [facility]
[2018-10-09 12:31] LABS: BASO # 0.1 x10^3/uL (0.0-0.2); BASO % 1 % (0-3); EOS # 0.1 x10^3/uL (0.0-0.7); EOS % 2 % (0-3); HEMOGLOBIN 13.4 g/dL (12.0-15.5); LYMPH # 1.3 x10^3/uL (1.0-4.8); LYMPH % 29 % (24-48); MEAN CORPUSCULAR HEMOGLOBIN 34 pg (25-35); MEAN CORPUSCULAR HGB CONC 35 g/dL (31-37); MEAN CORPUSCULAR VOLUME 98 fL (79-100); MONO # 0.4 x10^3/uL (0.0-1.1); MONO % 9 % (0-9); NEUT # 2.8 x10^3uL (1.8-7.7); NEUT % 60 % (31-73); PLATELET COUNT 240 x10^3/uL (140-400); RED BLOOD COUNT 3.97 x10^6/uL (3.50-5.40); RED CELL DISTRIBUTION WIDTH 12.5 % (11.5-14.5); WHITE BLOOD COUNT 4.7 x10^3/uL (4.0-11.0)
--- NOTE | 2018-10-09 12:45 | PHYS DOC ---
Past History Past Medical History: Arthritis, CAD, Diverticulitis, GERD, High Cholesterol, Hypertension, TIA, Other Past Surgical History: Cholecystectomy, Hysterectomy Smoking: Non-smoker Alcohol Use: None Drug Use: None Adult General Chief Complaint Chief Complaint: CHEST PAIN HPI HPI Patient is a 78 year old female who presents with complaining of chest pain. Patient complaining of sudden onset of nonexertional substernal pressure and throbbing pain that started about 45 minutes prior to arrival to ER as a constant pain without radiation. Patient complaining of palpitation and shortness of breath and headache without nausea, cough, fever and chills. Patient rated her pain 8/10 and states the pain spontaneously resolved on her way to come to the hospital. Patient had episodes of chest pain previously and admission at Hospital on May 2018 and has appointment with the director of kids next week. Review of Systems Review of Systems Constitutional: Denies fever or chills [] Eyes: Denies change in visual acuity, redness, or eye pain [] HENT: Denies nasal congestion or sore throat [] Respiratory: Denies cough, reports shortness of breath [] Cardiovascular: No additional information not addressed in HPI [] GI: Denies abdominal pain, nausea, vomiting, bloody stools or diarrhea [] : Denies dysuria or hematuria [] Musculoskeletal: Denies back pain or joint pain [] Integument: Denies rash or skin lesions [] Neurologic: Reports headache, denies focal weakness or sensory changes [] Endocrine: Denies polyuria or polydipsia [] All other systems were reviewed and found to be within normal limits, except as documented in this note. Current Medications Current Medications Current Medications Medications (Trade) Dose Ordered Sig/Sweta Start Time Stop Time Status Last Admin Dose Admin Aspirin (Children'S Aspirin) 324 mg 1X ONCE 10/09/18 12:20 10/09/18 12:21 Allergies Allergies Allergies Coded Allergies Type Severity Reaction Last Updated Verified Sulfa (Sulfonamide Antibiotics) Allergy Intermediate rash 04/01/14 No tetracycline Allergy Intermediate rash 04/01/14 No Physical Exam Physical Exam Constitutional: Well developed, well nourished, no acute distress, non-toxic appearance. [] HENT: Normocephalic, atraumatic, oropharynx moist, no oral exudates, nose normal. [] Eyes: PERRLA, EOMI, conjunctiva normal, no discharge. [] Neck: Normal range of motion, no tenderness, supple, no stridor. [] Cardiovascular:Heart rate regular rhythm, no murmur [] Lungs & Thorax: Bilateral breath sounds clear to auscultation [] Abdomen: Bowel sounds normal, soft, no tenderness, no masses, no pulsatile masses. [] Skin: Warm, dry, no erythema, no rash. [] Back: No tenderness, no CVA tenderness. [] Extremities: No tenderness, no cyanosis, no clubbing, ROM intact, no edema. [] Neurologic: Alert and oriented X 3, normal motor function, normal sensory function, no focal deficits noted. [] Psychologic: Affect anxious, judgement normal, mood normal. [] Current Patient Data Vital Signs Vital Signs Date Time Temp Pulse Resp B/P (MAP) Pulse Ox O2 Delivery O2 Flow Rate FiO2 10/09/18 11:56 98.1 76 18 100 Room Air EKG EKG EKG interpreted by me. EKG at 1149 showed normal sinus rhythm at rate of 76, abnormal left axis deviation, left anterior fascicular block, poor R-wave progress in anteroseptal leads, no acute ST and T-wave abnormalities. Radiology/Procedures Radiology/Procedures [address] [address] IMAGING REPORT Signed PATIENT: ABY JONES ACCOUNT: [id number] : 1940 LOCATION: ER AGE: 78 SEX: F EXAM STATUS: REG ER ORD. PHYSICIAN: ROBBI VAZQUEZ MD REASON: chest pain PROCEDURE: PORTABLE CHEST 1V EXAM: Chest, single view. HISTORY: Chest pain. COMPARISON: 05/20/2018 FINDINGS: A frontal view of the chest is obtained. There is no infiltrate, pleural effusion or pneumothorax. The heart is normal in size. There is cervical spinal fusion instrumentation. IMPRESSION: No acute pulmonary finding. Electronically signed by: Ольга Alexander MD (10/09/2018 12:16 PM) [place] [id number] DICTATED AND SIGNED BY: ОЛЬГА ALEXANDER MD DATE: 10/09/18 3195 CC: ROBBI VAZQUEZ MD; LYNN DENTON MD ~ Course & Med Decision Making Course & Med Decision Making Pertinent Labs and Imaging studies reviewed. (See chart for details) Evaluation of patient in ER showed 78-year-old female patient with complaining of chest pain that is about arrival to ER. Patient had previous episodes of chest pain and hospitalization. Patient had unremarkable EKG and chest x-ray and labs. Patient has appointment with director of kids next week and doesn't want hospitalization of breath to follow-up with her appointment as outpatient. Dragon Disclaimer Dragon Disclaimer This electronic medical record was generated, in whole or in part, using a voice recognition dictation system. Departure Departure: Impression: Primary Impression: Acute chest pain Additional Impression: Anxiety about health Disposition: HOME, SELF-CARE (at 1257) Condition: IMPROVED Referrals: LYNN DENTON MD (PCP) Patient Instructions: Chest Pain (Nonspecific) Additional Instructions: Follow-up with your director of kids appointment next week Follow-up with your primary care physician in 3-5 days Return to ER if not getting better Take children for chest pain Problem Qualifiers ROBBI VAZQUEZ MD Oct 09, 2018 12:45
[2018-10-09 12:48] LABS: ALBUMIN 3.6 g/dL (3.4-5.0); GFR 53.6; POTASSIUM 3.7 mmol/L (3.5-5.1); TOTAL BILIRUBIN 0.4 mg/dL (0.2-1.0); TOTAL PROTEIN 7.2 g/dL (6.4-8.2)
[2018-10-09 13:03] VITALS: BP 130/84
--- NOTE | 2018-10-10 15:58 | EKG ---
[address] [address] Test Date: 2018-10-09 Test Time: 11:49:42 Pat Name: ABY JONES Department: Room: Gender: F Clinical Research Monitor: THOMAS : 1940 Requested By: ROBBI VAZQUEZ Order Number: [id number] Reading MD: Measurements Intervals Anabel Rate: 76 P: 66 UT: 102 QRS: -47 QRSD: 86 T: 27 QT: 400 QTc: 455 Interpretive Statements SINUS RHYTHM ABNORMAL LEFT AXIS DEVIATION LEFT ANTERIOR FASCICULAR BLOCK QRS(T) CONTOUR ABNORMALITY CONSIDER ANTEROSEPTAL MYOCARDIAL DAMAGE ABNORMAL ECG RI6.01 No previous ECG available for comparison
== END 2018-10-09 13:13 | disposition home or self-care (01) ==
LOC: ER 11:43
DX: R07.89 Other chest pain (principal); F41.9 Anxiety disorder, unspecified; M19.90 Unspecified osteoarthritis, unspecified site; I25.10 Atherosclerotic heart disease of native coronary artery without angina pectoris; K21.9 Gastro-esophageal reflux disease without esophagitis; E78.00 Pure hypercholesterolemia, unspecified; I10 Essential (primary) hypertension; Z86.73 Personal history of transient ischemic attack (TIA), and cerebral infarction without residual deficits; Z88.2 Allergy status to sulfonamides; Z88.1 Allergy status to other antibiotic agents
CPT/HCPCS: 36415; 71045; 80053; 82550; 83690; 83735; 83880; 84484; 85025; 93005; 99284-25

== ENCOUNTER 2018-10-15 09:16 | Emergency (ER) | payer OTHER ==
[~2018-10-15] VITALS: Ht 162.6 cm; Wt 63.7 kg
[2018-10-15 09:55] LABS: BASO # 0.1 x10^3/uL (0.0-0.2); BASO % 1 % (0-3); EOS # 0.1 x10^3/uL (0.0-0.7); EOS % 1 % (0-3); HEMATOCRIT 41.5 % (36.0-47.0); HEMOGLOBIN 14.3 g/dL (12.0-15.5); LYMPH # 1.4 x10^3/uL (1.0-4.8); LYMPH % 29 % (24-48); MEAN CORPUSCULAR HEMOGLOBIN 34 pg (25-35); MEAN CORPUSCULAR HGB CONC 35 g/dL (31-37); MEAN CORPUSCULAR VOLUME 98 fL (79-100); MONO # 0.4 x10^3/uL (0.0-1.1); MONO % 9 % (0-9); NEUT # 2.8 x10^3uL (1.8-7.7); NEUT % 59 % (31-73); PLATELET COUNT 263 x10^3/uL (140-400); RED BLOOD COUNT 4.23 x10^6/uL (3.50-5.40); RED CELL DISTRIBUTION WIDTH 12.1 % (11.5-14.5); WHITE BLOOD COUNT 4.7 x10^3/uL (4.0-11.0)
--- NOTE | 2018-10-15 09:55 | PHYS DOC ---
Past History Past Medical History: CAD, Diverticulitis, GERD, High Cholesterol, Hypertension , TIA Past Surgical History: Cholecystectomy, Hysterectomy Smoking: Non-smoker Alcohol Use: None Drug Use: None Adult General Chief Complaint Chief Complaint: SHORTNESS OF BREATH [facility] HPI Patient is a 78 year old female who presents with chest heaviness. This started this morning. No worse with exertion. Increased discomfort with deep breaths. Patient reports that she feels like she isn't getting enough air. She reports pain along her sternum. Again worsened with deep breaths. No radiation of the discomfort. No diaphoresis. No syncope. No cough or fever. No change with laying down versus upright position. There has been no lower extremity swelling. No orthopnea or postural nocturnal dyspnea.[] Review of Systems Review of Systems Constitutional: Denies fever or chills [] Eyes: Denies change in visual acuity, redness, or eye pain [] HENT: Denies nasal congestion or sore throat [] Respiratory: Denies cough, reports shortness of breath as per the history of present illness [] Cardiovascular: No additional information not addressed in HPI [] GI: Denies abdominal pain, nausea, vomiting, bloody stools or diarrhea [] : Denies dysuria or hematuria [] Musculoskeletal: Denies back pain or joint pain [] Integument: Denies rash or skin lesions [] Neurologic: Denies headache, focal weakness or sensory changes [] Endocrine: Denies polyuria or polydipsia [] All other systems were reviewed and found to be within normal limits, except as documented in this note. Allergies Allergies Allergies Coded Allergies Type Severity Reaction Last Updated Verified Sulfa (Sulfonamide Antibiotics) Allergy Intermediate rash 04/01/14 No tetracycline Allergy Intermediate rash 04/01/14 No Physical Exam Physical Exam Constitutional: Well developed, well nourished, no acute distress, non-toxic appearance. [] HENT: Normocephalic, atraumatic, bilateral external ears normal, oropharynx moist, no oral exudates, nose normal. [] Eyes: PERRLA, EOMI, conjunctiva normal, no discharge. [] Neck: Normal range of motion, no tenderness, supple, no stridor. [] Cardiovascular:Heart rate regular rhythm, no murmur [] Lungs & Thorax: Bilateral breath sounds clear to auscultation, there is tenderness to light palpation of the sternum which does re-create her chest discomfort. [] Abdomen: Bowel sounds normal, soft, no tenderness, no masses, no pulsatile masses. [] Skin: Warm, dry, no erythema, no rash. [] Back: No tenderness, no CVA tenderness. [] Extremities: No tenderness, no cyanosis, no clubbing, ROM intact, no edema. [] Neurologic: Alert and oriented X 3, normal motor function, normal sensory function, no focal deficits noted. [] Psychologic: Affect anxious, judgement normal. [] Current Patient Data Vital Signs Vital Signs Date Time Temp Pulse Resp B/P (MAP) Pulse Ox O2 Delivery O2 Flow Rate FiO2 10/15/18 09:37 98.4 77 20 100 Room Air EKG EKG EKG shows a sinus rhythm at 71 bpm, left axis deviation, no ST elevation, no acute changes when compared with an EKG of 10/09/2018. EKG evaluated by me at 0 958[] Radiology/Procedures Radiology/Procedures CTA chest with contrast 10/15/2018 Clinical indication: Shortness of breath, elevated d-dimer. COMPARISON: CTA chest 05/20/2018. TECHNIQUE: Multiple CTA images of the chest were obtained following the intravenous administration of 60 mL Omnipaque 350. MIPS were obtained the chest. *One or more of the following individualized dose reduction techniques were utilized for this examination: 1. Automated exposure control. 2. Adjustment of the mA and/or kV according to patient size. 3. Use of iterative reconstruction technique. FINDINGS: Heart size is normal without significant pericardial effusion. There is stable dilatation of the ascending thoracic aorta measuring 3.8 cm. Three-vessel coronary artery calcifications are noted. No central or major segmental pulmonary arterial filling defect. No axillary, mediastinal or hilar lymphadenopathy. The central airways are patent. No pleural effusion, pneumothorax or focal consolidation. There are no destructive osseous lesions. Partial visualization of lower ACDF hardware. Limited images of the upper abdomen: Grossly unremarkable. IMPRESSION: 1. No CT evidence of pulmonary embolism. 2. Stable dilatation of the ascending thoracic aorta measuring 3.8 cm. 3. Three-vessel coronary artery calcifications.] Course & Med Decision Making Course & Med Decision Making Pertinent Labs and Imaging studies reviewed. (See chart for details) ED course: Patient arrived, was placed in bed, tolerated exam well. After the return of the elevated d-dimer and an elevated A-a gradient elected to forego the chest x-ray and proceed to CT angiography to evaluate for pulmonary embolism. Patient was given IV fluids since her renal function is marginal with a GFR in the 40s. After the return of the laboratory and imaging findings, discussed the results with patient and family who voiced understanding. All questions were answered. Medical decision making: This does not seem to be cardiac etiology given the lack of worsening with exertion as well as negative cardiac enzymes both today as well as last week when she was seen for similar circumstances. This does not seem to be a pneumonia given the lack of cough or fever. No evidence of a GI/ pancreatitis issue given the negative lipase. No evidence of pneumothorax nor pulmonary embolism based on imaging findings. There may be some degree of anxiety and hyperventilation given the low PCO2 of 22 and the elevated pH 7.576 on her blood gas. Patient is noted to have white cells in her urine with out many epithelial cells so we'll treat her for urinary tract infection. There is no evidence of sepsis nor pyelonephritis.[] Dragon Disclaimer Dragon Disclaimer This electronic medical record was generated, in whole or in part, using a voice recognition dictation system. Departure Departure: Impression: Primary Impression: Chest pain Additional Impression: Urinary tract infection Disposition: 01 HOME, SELF-CARE Condition: GOOD Referrals: LYNN DENTON MD (PCP) Follow-up in 2 days Patient Instructions: Chest Pain (Nonspecific), Urinary Tract Infection Additional Instructions: Drink plenty of fluids. Follow-up with your regular doctor in 2 days. Return to the ER if worsening chest discomfort, fever of more than 101, or any other concerns. Scripts Meloxicam (MELOXICAM) 7.5 Mg Tablet 7.5 MG PO DAILY for PAIN, #20 TAB Prov: MARIE BERGERON DO 10/15/18 Cephalexin (KEFLEX) 500 Mg Capsule 500 MG PO TID for UTI, #30 CAP Prov: MARIE BERGERON DO 10/15/18 Problem Qualifiers Primary Impression: Chest pain Chest pain type: unspecified Qualified Codes: R07.9 - Chest pain, unspecified Additional Impression: Urinary tract infection Urinary tract infection type: site unspecified Hematuria presence: without hematuria Qualified Codes: N39.0 - Urinary tract infection, site not specified MARIE BERGERON DO Oct 15, 2018 09:55
[2018-10-15 10:10] LABS: ALBUMIN 3.8 g/dL (3.4-5.0); CALCIUM 9.3 mg/dL (8.5-10.1); CREATININE 1.2 mg/dL (0.6-1.0); GFR 43.4; POTASSIUM 4.1 mmol/L (3.5-5.1); TOTAL BILIRUBIN 0.6 mg/dL (0.2-1.0); TOTAL PROTEIN 7.6 g/dL (6.4-8.2)
[2018-10-15] MEDS ORDERED: KETOROLAC 15 MG/ML VIAL. IV ONE (10:20)
[2018-10-15] MEDS ORDERED: ASPIRIN 81 MG TAB.CHEW PO ONE (10:20)
[2018-10-15 10:29] LABS: BGAS PH 7.58 (7.35-7.45)
[2018-10-15] MEDS ORDERED: IV NORMAL SALINE 1,000ML 1,000 ML IV ONE (10:45)
[2018-10-15 10:49] LABS: BACTERIA,URINE 0 /HPF (0-FEW); BILIRUBIN,URINE NEG (NEG); CLARITY,URINE CLEAR; COLOR,URINE YELLOW; GLUCOSE,URINE NEG (NEG); NITRITE,URINE NEG (NEG); RBC,URINE 0 /HPF (0-2); SQUAMOUS EPITHELIAL CELL,UR OCC /LPF; UROBILINOGEN,URINE 0.2 mg/dL (0.2 mg/dL)
[2018-10-15 10:50] LABS: PLATELET CLUMP PRESENT; PLT ESTIMATE ADEQUATE (ADEQUATE)
[2018-10-15] MEDS ORDERED: IOHEXOL 350 MG/ML 100 ML VIAL. IV ONE ×2 (11:00)
--- NOTE | 2018-10-15 11:36 | EKG ---
[address] [address] Test Date: 2018-10-15 Test Time: 09:56:24 Pat Name: ABY JONES Department: Room: Gender: F [employer] Supervisor: : 1940 Requested By: MARIE BERGERON Order Number: [id number] Reading MD: Jhon Ortega Measurements Intervals [place] Rate: 71 P: 79 [place]: 110 QRS: -64 QRSD: 82 T: 45 QT: 414 QTc: 455 Interpretive Statements SINUS RHYTHM ABNORMAL LEFT AXIS DEVIATION LEFT ANTERIOR FASCICULAR BLOCK QRS(T) CONTOUR ABNORMALITY CONSIDER ANTEROSEPTAL MYOCARDIAL DAMAGE ABNORMAL ECG Electronically Signed On 10-20-2018 9:27:43 [employer] by Jhon Ortega
--- NOTE | 2018-10-15 11:47 | RAD ---
CTA chest with contrast 10/15/2018 Clinical indication: Shortness of breath, elevated d-dimer. COMPARISON: CTA chest 05/20/2018. TECHNIQUE: Multiple CTA images of the chest were obtained following the intravenous administration of 60 mL Omnipaque 350. MIPS were obtained the chest. *One or more of the following individualized dose reduction techniques were utilized for this examination: 1. Automated exposure control. 2. Adjustment of the mA and/or kV according to patient size. 3. Use of iterative reconstruction technique. FINDINGS: Heart size is normal without significant pericardial effusion. There is stable dilatation of the ascending thoracic aorta measuring 3.8 cm. Three-vessel coronary artery calcifications are noted. No central or major segmental pulmonary arterial filling defect. No axillary, mediastinal or hilar lymphadenopathy. The central airways are patent. No pleural effusion, pneumothorax or focal consolidation. There are no destructive osseous lesions. Partial visualization of lower ACDF hardware. Limited images of the upper abdomen: Grossly unremarkable. IMPRESSION: 1. No CT evidence of pulmonary embolism. 2. Stable dilatation of the ascending thoracic aorta measuring 3.8 cm. 3. Three-vessel coronary artery calcifications. Electronically signed by: Shay Rubin MD (10/15/2018 11:42 AM) [facility]
[2018-10-15] MEDS ORDERED: CEPH-264 PO (12:04)
[2018-10-15] MEDS ORDERED: MELO7.5T29 PO (12:04)
[2018-10-15 12:05] VITALS: BP 138/78
== END 2018-10-15 12:05 | disposition home or self-care (01) ==
LOC: ER 09:16
DX: R07.2 Precordial pain (principal); N39.0 Urinary tract infection, site not specified; I25.10 Atherosclerotic heart disease of native coronary artery without angina pectoris; K21.9 Gastro-esophageal reflux disease without esophagitis; E78.00 Pure hypercholesterolemia, unspecified; I10 Essential (primary) hypertension; Z86.73 Personal history of transient ischemic attack (TIA), and cerebral infarction without residual deficits; Z88.2 Allergy status to sulfonamides; Z88.1 Allergy status to other antibiotic agents
CPT/HCPCS: 36415; 36600; 71275; 80053; 81001; 82803; 83690; 83735; 83880; 84443; 84484; 85025; 85379; 85610; 87086; 93005; 96374; 99284; J1885; Q9967; J7030

== ENCOUNTER 2018-12-31 11:13 | Emergency (ER) | payer OTHER ==
[~2018-12-31] VITALS: Ht 162.6 cm; Wt 63.7 kg
[~2018-12-31 11:13] MED LIST changes: +CEPH-264 PO; +MELO7.5T29 PO
--- NOTE | 2018-12-31 11:26 | PHYS DOC ---
Past History Past Medical History: CAD, Diverticulitis, GERD, High Cholesterol, Hypertension , TIA Past Surgical History: Cholecystectomy, Hysterectomy Smoking: Non-smoker Alcohol Use: None Drug Use: None Adult General Chief Complaint Chief Complaint: SHORTNESS OF BREATH HPI HPI Patient is a 78-year-old female presents complaining of shortness of breath that has been waxing and waning for the past 1-2 weeks. No chest pain. Slightly worse with exertion. No problems sleeping, lays flat to sleep. No swelling in her legs feet or ankles. No black tarry stools. No recent travel, trauma, nor known hypercoagulable state. No fever or cough.[] Review of Systems Review of Systems Constitutional: Denies fever or chills [] Eyes: Denies change in visual acuity, redness, or eye pain [] HENT: Denies nasal congestion or sore throat [] Respiratory: Denies cough, see history of present illness[] Cardiovascular: No chest pain or palpitations[] GI: Denies abdominal pain, nausea, vomiting, bloody stools or diarrhea [] : Denies dysuria or hematuria [] Musculoskeletal: Denies back pain or joint pain [] Integument: Denies rash or skin lesions [] Neurologic: Denies headache, focal weakness or sensory changes [] Endocrine: Denies polyuria or polydipsia [] All other systems were reviewed and found to be within normal limits, except as documented in this note. Allergies Allergies Allergies Coded Allergies Type Severity Reaction Last Updated Verified Sulfa (Sulfonamide Antibiotics) Allergy Intermediate rash 10/15/18 No tetracycline Allergy Intermediate rash 10/15/18 No Physical Exam Physical Exam Constitutional: Well developed, well nourished, no acute distress, non-toxic appearance. [] HENT: Normocephalic, atraumatic, bilateral external ears normal, oropharynx moist, no oral exudates, nose normal. [] Eyes: PERRLA, EOMI, conjunctiva normal, no discharge. [] Neck: Normal range of motion, no tenderness, supple, no stridor. [] Cardiovascular:Heart rate regular rhythm, no murmur [] Lungs & Thorax: Bilateral breath sounds clear to auscultation [] Abdomen: Bowel sounds normal, soft, no tenderness, no masses, no pulsatile masses. [] Skin: Warm, dry, no erythema, no rash. [] Back: No tenderness, no CVA tenderness. [] Extremities: No tenderness, no cyanosis, no clubbing, ROM intact, no edema. [] Neurologic: Alert and oriented X 3, normal motor function, normal sensory function, no focal deficits noted. [] Psychologic: Affect normal, judgement normal, mood normal. [] EKG EKG EKG shows a sinus rhythm at 66 bpm, left axis deviation at -52, QTC of 461 ms, no ST elevations, no acute changes when compared with EKGs of 10/09/2018 and 10/15. Interpreted by me at 1124[] Radiology/Procedures Radiology/Procedures PROCEDURE: CHEST PA & LATERAL CHEST PA LATERAL Clinical indications: SHORTNESS OF BREATH, LIGHTHEADED, AND DIZZY X 1 DAY. COMPARISON: October 09, 2018. Findings: No acute lung infiltrate or pleural effusion or pulmonary edema or lung mass or pneumothorax is seen. The heart size, pulmonary vasculature, mediastinum and both paula are unremarkable. The osseous structures appear intact. Impression: No acute radiographic abnormality is seen.[] Course & Med Decision Making Course & Med Decision Making Pertinent Labs and Imaging studies reviewed. (See chart for details) ED course: Patient arrived, was placed in bed, and tolerated exam well. She had IV access established and was placed on engine monitor and pulse oximetry. Oxygen level was noted to be 100% and her lungs were clear to auscultation sober breathing treatment was not deemed to be necessary at this time. EKG did not show any acute features. She was transported to and from radiology with any complications. After the return the elevated d-dimer a CT angiogram of the chest was ordered. Patient was transported to and from CT with any complications. After return of the lab and CT findings, these were discussed with the patient and family who voiced understanding. Patient was able to ambulate around the emergency department without any episodes of hypoxia. She was discharged in improved condition. Medical decision making: This does not appear to be an acute coronary syndrome, no evidence of pulmonary embolism, pneumonia, pneumothorax, anemia, nor hypoxia. Patient does have a urinary tract infection which will be treated on oral outpatient medication.[] Dragon Disclaimer Dragon Disclaimer This electronic medical record was generated, in whole or in part, using a voice recognition dictation system. Departure Departure: Impression: Primary Impression: Shortness of breath Additional Impression: Urinary tract infection Disposition: HOME, SELF-CARE Condition: IMPROVED Referrals: LYNN DENTON MD (PCP) Follow-up in 2 days Patient Instructions: Shortness of Breath, Urinary Tract Infection Additional Instructions: Drink plenty of fluids. Follow-up with your regular doctor in 2 days. Return to the ER if worsening difficulty breathing or any other concerns. Scripts Cephalexin (KEFLEX) 500 Mg Capsule 500 MG PO TID for uti for 7 Days, #21 CAP Prov: MARIE BERGERON DO 12/31/18 Problem Qualifiers Additional Impression: Urinary tract infection Urinary tract infection type: site unspecified Hematuria presence: without hematuria Qualified Codes: N39.0 - Urinary tract infection, site not specified MARIE BERGERON DO Dec 31, 2018 11:26
[2018-12-31 11:44] LABS: BASO % 1 % (0-3); EOS % 1 % (0-3); HEMATOCRIT 39.2 % (36.0-47.0); LYMPH # 1.3 x10^3/uL (1.0-4.8); LYMPH % 34 % (24-48); MEAN CORPUSCULAR HEMOGLOBIN 35 pg (25-35); MEAN CORPUSCULAR HGB CONC 36 g/dL (31-37); MEAN CORPUSCULAR VOLUME 98 fL (79-100); MONO # 0.4 x10^3/uL (0.0-1.1); MONO % 11 % (0-9); NEUT # 2.1 x10^3uL (1.8-7.7); NEUT % 53 % (31-73); PLATELET COUNT 287 x10^3/uL (140-400); RED BLOOD COUNT 4.01 x10^6/uL (3.50-5.40); RED CELL DISTRIBUTION WIDTH 12.5 % (11.5-14.5); WHITE BLOOD COUNT 3.9 x10^3/uL (4.0-11.0)
--- NOTE | 2018-12-31 11:56 | RAD ---
CHEST PA LATERAL Clinical indications: SHORTNESS OF BREATH, LIGHTHEADED, AND DIZZY X 1 DAY. COMPARISON: October 09, 2018. Findings: No acute lung infiltrate or pleural effusion or pulmonary edema or lung mass or pneumothorax is seen. The heart size, pulmonary vasculature, mediastinum and both paula are unremarkable. The osseous structures appear intact. Impression: No acute radiographic abnormality is seen. Electronically signed by: Camilo Everett MD (12/31/2018 11:53 AM) [facility]
--- NOTE | 2018-12-31 11:59 | EKG ---
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
[2018-12-31 12:00] LABS: INFLUENZA A PATIENT NEGATIVE (NEGATIVE); INFLUENZA B PATIENT NEGATIVE (NEGATIVE)
[2018-12-31 12:03] LABS: ALBUMIN 3.7 g/dL (3.4-5.0); CALCIUM 9.5 mg/dL (8.5-10.1); CREATININE 1.1 mg/dL (0.6-1.0); POTASSIUM 3.6 mmol/L (3.5-5.1); TOTAL PROTEIN 7.5 g/dL (6.4-8.2)
[2018-12-31] MEDS ORDERED: IOHEXOL 350 MG/ML 100 ML VIAL. IV ONE (12:15)
[2018-12-31] MEDS ORDERED: CONTRAST GIVEN MC PRN (12:15)
[2018-12-31] MEDS ORDERED: IOHEXOL 300 MG/ML 75 ML VIAL. IV ONE (12:45)
--- NOTE | 2018-12-31 12:47 | RAD ---
CTA OF THE CHEST WITH AND WITHOUT CONTRAST Clinical indications: Chest pain and shortness of air that started this a.m. Elevated d-dimer. Technique: Noncontrast axial localizer was performed. After IV infusion of 75 cc of Omnipaque 300, helical CT scanning of the chest was performed using the CT pulmonary embolism protocol. A coronal MIP reconstruction was generated. PQRS compliance Statement One or more of the following individualized dose reduction techniques were utilized for this study: 1. Automated exposure control 2. Adjustment of the mA and/or kV according to patient size 3. Use of iterative reconstruction technique Comparison: October 15, 2018. Findings: No pulmonary embolism is evident. There is ectasia of the ascending aorta measuring up to 4.2 cm in greatest caliber. This has increased slightly in size from the previous study. No intimal flap or dissection is seen. The heart size is normal. Calcified atheromatous disease of the coronary arteries is seen. No enlarged thoracic lymphadenopathy is evident. No lung consolidation or lung mass is evident. No pleural effusion or pneumothorax is evident. The proximal bronchial tree is patent. No lytic process is seen. No adrenal mass is evident. IMPRESSION: No pulmonary embolism. Calcified atheromatous disease of the coronary arteries. No acute lung infiltrate. Mild increase in ectasia of the ascending aorta which measures up to 4.2 cm in greatest caliber. It measured 3.8 cm previously. Electronically signed by: Camilo Everett MD (12/31/2018 12:44 PM) [facility]
[2018-12-31 12:56] LABS: BILIRUBIN,URINE NEG (NEG); CLARITY,URINE CLEAR; COLOR,URINE YELLOW; GLUCOSE,URINE NEG (NEG)
[2018-12-31 12:57] LABS: BACTERIA,URINE 0 /HPF (0-FEW); HYALINE CASTS, URINE OCC /HPF; NITRITE,URINE NEG (NEG); RBC,URINE 0 /HPF (0-2); SQUAMOUS EPITHELIAL CELL,UR OCC /LPF; UROBILINOGEN,URINE 0.2 mg/dL (0.2 mg/dL)
[2018-12-31 13:12] VITALS: BP 115/73
[2018-12-31] MEDS ORDERED: CEPH-264 PO (13:15)
== END 2018-12-31 13:23 | disposition home or self-care (01) ==
LOC: ER 11:13
DX: R06.02 Shortness of breath (principal); N39.0 Urinary tract infection, site not specified; I25.10 Atherosclerotic heart disease of native coronary artery without angina pectoris; K21.9 Gastro-esophageal reflux disease without esophagitis; E78.00 Pure hypercholesterolemia, unspecified; I10 Essential (primary) hypertension; Z86.73 Personal history of transient ischemic attack (TIA), and cerebral infarction without residual deficits; Z88.2 Allergy status to sulfonamides; Z88.1 Allergy status to other antibiotic agents
CPT/HCPCS: 36415; 71046; 71275; 80053; 81001; 83880; 84484; 85025; 85379; 87086; 87804; 93005; 99285

== ENCOUNTER 2019-01-10 11:47 | Emergency (ER) | payer OTHER ==
[~2019-01-10] VITALS: Ht 162.6 cm; Wt 63.7 kg
[2019-01-10 11:53] VITALS: BP 138/83
--- NOTE | 2019-01-10 12:13 | PHYS DOC ---
Past History Past Medical History: Anxiety, CAD, Dementia, Diverticulitis, GERD, High Cholesterol, Hypertension, TIA Past Surgical History: Cholecystectomy, Hysterectomy Smoking: Non-smoker Alcohol Use: None Drug Use: None Adult General Chief Complaint Chief Complaint: HEADACHE HPI HPI Patient is a 78-year-old female presents with headache and dizziness. This started some time this morning. Patient is uncertain as to time, at one point saying it started at 8 AM at another time saying it started in hour prior to arrival. Patient denies this being worse headache of life. Denies any vision changes. Patient is unable to specify what she means by dizziness whether it is a lightheaded sensation, rotational sensation, or some other sensation. Patient denies anything seems to make this better or worse. Patient reports that she had difficulty walking due to the dizziness, and that both legs didn't work. Her had to help her out to the car prior to coming into the emergency department. Patient was able to walk into registration. No nausea or vomiting.[] Review of Systems Review of Systems Constitutional: Denies fever or chills [] Eyes: Denies change in visual acuity, redness, or eye pain [] HENT: Denies nasal congestion or sore throat [] Respiratory: Denies cough or shortness of breath [] Cardiovascular: No chest pain or palpitations[] GI: Denies abdominal pain, nausea, vomiting, bloody stools or diarrhea [] : Denies dysuria or hematuria [] Musculoskeletal: Denies back pain or joint pain [] Integument: Denies rash or skin lesions [] Neurologic: Denies focal weakness or sensory changes [] Endocrine: Denies polyuria or polydipsia [] All other systems were reviewed and found to be within normal limits, except as documented in this note. Allergies Allergies Allergies Coded Allergies Type Severity Reaction Last Updated Verified Sulfa (Sulfonamide Antibiotics) Allergy Intermediate rash 10/15/18 No tetracycline Allergy Intermediate rash 10/15/18 No Physical Exam Physical Exam Constitutional: Well developed, well nourished, no acute distress, non-toxic appearance. [] HENT: Normocephalic, atraumatic, bilateral external ears normal, oropharynx moist, no oral exudates, nose normal. [] Eyes: PERRLA, EOMI, conjunctiva normal, no discharge. [] Neck: Normal range of motion, no tenderness, supple, no stridor. [] Cardiovascular:Heart rate regular rhythm, no murmur [] Lungs & Thorax: Bilateral breath sounds clear to auscultation [] Abdomen: Bowel sounds normal, soft, no tenderness, no masses, no pulsatile masses. [] Skin: Warm, dry, no erythema, no rash. [] Back: No tenderness, no CVA tenderness. [] Extremities: No tenderness, no cyanosis, no clubbing, ROM intact, no edema. [] Neurologic: Alert and oriented X 3, normal motor function, normal sensory function, no focal deficits noted. NIH stroke scale 0, normal rapid repetitive and alternating movements[] Psychologic: Affect normal, judgement normal, mood normal. [] EKG EKG EKG shows a sinus rhythm at 67 bpm, left axis axis of -54, QTC of 532 ms which is prolonged. Left anterior fascicular block is present, no ST elevations. Compared with EKG of 12/31/2018, no acute changes other than the prolongation of the QTC. Interpreted by me at 1213[] Radiology/Procedures Radiology/Procedures PROCEDURE: PORTABLE CHEST 1V PORTABLE CHEST 1V History: weakness with headache/dzziness Comparison: December 31, 2018 Findings: Single view of the chest is submitted. There is no infiltrate, pneumothorax, or effusion. The pericardial cardiac silhouette is within normal limits in size. There is a somewhat tortuous thoracic aorta. Cervical spinal hardware is not fully included Impression: 1. There is no radiographic evidence of acute cardiopulmonary disease.[] Course & Med Decision Making Course & Med Decision Making Pertinent Labs and Imaging studies reviewed. (See chart for details) ED course and medical decision making: Patient arrived, was placed in bed, and tolerated exam well. Patient was transported to CT scanner however there were technical issues with the scanner itself and was unable to have the scan performed. She was return to the emergency department without any complications. She continued to have the headaches so analgesics were provided. And her headache did improve. Due to concern for possible serious etiology of this headache, consultation was made with hospitalist who admits both urine at [facility]. He graciously accepted the patient for transfer over to [facility] where imaging could be performed. Do not see this is a stroke syndrome requiring thrombolytic medication given that the patient has an NIH stroke scale of 0. Her laboratory testing does not show any significant electrolyte abnormality, no evidence of a urinary tract infection as an etiology for these symptoms. Discussed findings and plan with patient and family who voiced understanding. All questions were answered. Approximately 1400 patient while waiting transport decided that she wanted to leave and go home. She was able to state the risks in her own words to include or permanent disability. She appears able to make an informed decision.[] Dragon Disclaimer Dragon Disclaimer This electronic medical record was generated, in whole or in part, using a voice recognition dictation system. Departure Departure: Impression: Primary Impression: Headache Additional Impression: Leg weakness, bilateral Disposition: 07 AGAINST MEDICAL ADVICE Condition: IMPROVED Referrals: LYNN DENTON MD (PCP) Problem Qualifiers Primary Impression: Headache Headache type: unspecified Headache chronicity pattern: acute headache Intractability: not intractable Qualified Codes: R51 - Headache MARIE BERGERON DO Jan 10, 2019 12:13
[2019-01-10 12:23] LABS: BASO # 0.1 x10^3/uL (0.0-0.2); BASO % 2 % (0-3); EOS % 1 % (0-3); HEMOGLOBIN 14.9 g/dL (12.0-15.5); LYMPH # 1.2 x10^3/uL (1.0-4.8); LYMPH % 29 % (24-48); MEAN CORPUSCULAR HEMOGLOBIN 35 pg (25-35); MEAN CORPUSCULAR HGB CONC 36 g/dL (31-37); MEAN CORPUSCULAR VOLUME 98 fL (79-100); MONO # 0.5 x10^3/uL (0.0-1.1); MONO % 12 % (0-9); NEUT # 2.3 x10^3uL (1.8-7.7); NEUT % 56 % (31-73); PLATELET COUNT 259 x10^3/uL (140-400); RED CELL DISTRIBUTION WIDTH 12.4 % (11.5-14.5)
[2019-01-10] MEDS ORDERED: ASPIRIN 81 MG TAB.CHEW PO ONE (12:30)
--- NOTE | 2019-01-10 12:31 | RAD ---
PORTABLE CHEST 1V History: weakness with headache/dzziness Comparison: December 31, 2018 Findings: Single view of the chest is submitted. There is no infiltrate, pneumothorax, or effusion. The pericardial cardiac silhouette is within normal limits in size. There is a somewhat tortuous thoracic aorta. Cervical spinal hardware is not fully included Impression: 1. There is no radiographic evidence of acute cardiopulmonary disease. Electronically signed by: Bigg Barnett MD (01/10/2019 12:28 PM) [facility]
[2019-01-10 12:37] LABS: ALBUMIN 3.8 g/dL (3.4-5.0); CALCIUM 9.6 mg/dL (8.5-10.1); CREATININE 1.1 mg/dL (0.6-1.0); MAGNESIUM 2.1 mg/dL (1.8-2.4); POTASSIUM 3.7 mmol/L (3.5-5.1); TOTAL BILIRUBIN 0.8 mg/dL (0.2-1.0); TOTAL PROTEIN 7.7 g/dL (6.4-8.2)
[2019-01-10 13:11] LABS: BILIRUBIN,URINE NEG (NEG); CLARITY,URINE CLEAR; COLOR,URINE YELLOW; GLUCOSE,URINE NEG (NEG)
[2019-01-10 13:12] LABS: BACTERIA,URINE 0 /HPF (0-FEW); NITRITE,URINE NEG (NEG); RBC,URINE OCC /HPF (0-2); SQUAMOUS EPITHELIAL CELL,UR FEW /LPF; UROBILINOGEN,URINE 0.2 mg/dL (0.2 mg/dL)
[2019-01-10] MEDS ORDERED: ACETAMINOPHEN 500 MG TABLET PO ONE (13:40)
[2019-01-10] MEDS ORDERED: traMADol 50 MG TABLET PO ONE (13:40)
--- NOTE | 2019-01-10 17:20 | EKG ---
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
== END 2019-01-10 14:02 | disposition left against medical advice (07) ==
LOC: ER 11:47
DX: R51 Headache (principal); R53.1 Weakness; R42 Dizziness and giddiness; F41.9 Anxiety disorder, unspecified; I25.10 Atherosclerotic heart disease of native coronary artery without angina pectoris; K21.9 Gastro-esophageal reflux disease without esophagitis; E78.00 Pure hypercholesterolemia, unspecified; I10 Essential (primary) hypertension; Z86.73 Personal history of transient ischemic attack (TIA), and cerebral infarction without residual deficits; Z88.2 Allergy status to sulfonamides; Z88.1 Allergy status to other antibiotic agents
CPT/HCPCS: 36415; 71045; 80053; 81001; 82947; 83735; 83880; 84484; 85025; 85610; 87086; 87186; 93005; 99285

== ENCOUNTER → 2019-03-13 | Outpatient (CLI) | payer OTHER ==
--- NOTE | 2019-03-13 17:00 | RAD ---
Examination: 2 views of the left hip with frontal view the pelvis HISTORY: History of left hip pain COMPARISON: None available FINDINGS: The bilateral femoral heads within the cerebellum. There is no acute fracture or dislocation identified. Mild joint space loss identified in the bilateral hip joint likely degeneration IMPRESSION: Mild degenerative changes bilateral hip joints. Electronically signed by: Saran Colindres MD (03/13/2019 4:57 PM) [id number]
== END | disposition home or self-care (01) ==
LOC: PMG 14:28
PROVIDERS: ATTEND Family Medicine
DX: M16.0 Bilateral primary osteoarthritis of hip (principal)
CPT/HCPCS: 73502

== ENCOUNTER 2019-06-28 11:43 | Emergency (ER) | payer MEDICAID, OTHER ==
[~2019-06-28 11:43] MED LIST changes: +LISI1TAB19 PO; +LISI1TAB23 PO; -LISI1TAB3 PO; -LISI1TAB5 PO
[2019-06-28 12:00] VITALS: BP 150/93
[2019-06-28 12:11] LABS: BASO # 0.1 x10^3/uL (0.0-0.2); BASO % 1 % (0-3); EOS % 0 % (0-3); HEMOGLOBIN 14.3 g/dL (12.0-15.5); LYMPH % 17 % (24-48); MEAN CORPUSCULAR HEMOGLOBIN 34 pg (25-35); MEAN CORPUSCULAR HGB CONC 34 g/dL (31-37); MEAN CORPUSCULAR VOLUME 100 fL (79-100); MONO # 0.4 x10^3/uL (0.0-1.1); MONO % 7 % (0-9); NEUT # 4.5 x10^3uL (1.8-7.7); NEUT % 75 % (31-73); PLATELET COUNT 231 x10^3/uL (140-400); RED BLOOD COUNT 4.18 x10^6/uL (3.50-5.40); RED CELL DISTRIBUTION WIDTH 12.3 % (11.5-14.5)
[2019-06-28] MEDS ORDERED: ASPIRIN 325 MG TABLET PO ONE (12:20)
[2019-06-28 12:29] LABS: ALBUMIN 3.6 g/dL (3.4-5.0); CALCIUM 8.9 mg/dL (8.5-10.1); CREATININE 0.8 mg/dL (0.6-1.0); GFR 69.2; MAGNESIUM 2.1 mg/dL (1.8-2.4); POTASSIUM 3.6 mmol/L (3.5-5.1); TOTAL BILIRUBIN 0.4 mg/dL (0.2-1.0); TOTAL PROTEIN 7.1 g/dL (6.4-8.2)
[2019-06-28] MEDS ORDERED: IV NORMAL SALINE 1,000ML 1,000 ML IV ONE (12:30)
--- NOTE | 2019-06-28 12:34 | PHYS DOC ---
Past History Past Medical History: Dementia, GERD, High Cholesterol, Hypertension, TIA Past Surgical History: Cholecystectomy, Hysterectomy Smoking: Non-smoker Alcohol Use: None Drug Use: None Adult General Chief Complaint Chief Complaint: CHEST PAIN HPI HPI 79-year-old female presents with report of sudden chest discomfort that started just prior to arrival. Reports some associated shortness of breath and the pain hit which has all since resolved. Denies pleuritic pain. Denies leg swelling or calf tenderness. Denies nausea or diaphoresis. Cardiac risk factors of high cholesterol and hypertension. Denies trauma. Denies fever or chills. Review of Systems Review of Systems Constitutional: Denies fever or chills Eyes: Denies redness or eye pain HENT: Denies nasal congestion or sore throat Respiratory: Denies cough or shortness of breath Cardiovascular: Reports chest pain; denies palpitations GI: Denies abdominal pain, nausea, or vomiting : Denies dysuria or hematuria Musculoskeletal: Denies back pain or joint pain Integument: Denies rash or skin lesions Neurologic: Denies headache, focal weakness or sensory changes Complete systems were reviewed and found to be within normal limits, except as documented in this note. Current Medications Current Medications Current Medications Medications (Trade) Dose Ordered Sig/Sweta Start Time Stop Time Status Last Admin Dose Admin Aspirin (Ekaterina Aspirin) 325 mg 1X ONCE 06/28/19 12:20 06/28/19 12:21 DC 06/28/19 11:59 325 MG Sodium Chloride 1,000 ml @ 1,000 mls/hr 1X ONCE 06/28/19 12:30 06/28/19 13:29 Allergies Allergies Allergies Coded Allergies Type Severity Reaction Last Updated Verified Sulfa (Sulfonamide Antibiotics) Allergy Intermediate rash 01/10/19 No tetracycline Allergy Intermediate rash 01/10/19 No Physical Exam Physical Exam Constitutional: Well developed, well nourished, no acute distress, non-toxic appearance HENT: Normocephalic, atraumatic Eyes: Conjunctiva normal, no discharge Neck: Normal range of motion, no tenderness, supple Cardiovascular: Heart rate normal, regular rhythm Lungs & Thorax: Bilateral breath sounds clear to auscultation, no wheezing Abdomen: Soft, no tenderness Skin: Warm, dry, no erythema, no rash Extremities: No tenderness, ROM intact, no edema Neurologic: Alert and oriented, no focal deficits noted Psychologic: Affect normal, judgement normal Current Patient Data Vital Signs Vital Signs Date Time Temp Pulse Resp B/P (MAP) Pulse Ox O2 Delivery O2 Flow Rate FiO2 06/28/19 12:00 58 20 99 Room Air Lab Results Laboratory Tests Test 06/28/19 11:53 White Blood Count 6.0 x10^3/uL (4.0-11.0) Red Blood Count 4.18 x10^6/uL (3.50-5.40) Hemoglobin 14.3 g/dL (12.0-15.5) Hematocrit 42.0 % (36.0-47.0) Mean Corpuscular Volume 100 fL (79-100) Mean Corpuscular Hemoglobin 34 pg (25-35) Mean Corpuscular Hemoglobin Concent 34 g/dL (31-37) Red Cell Distribution Width 12.3 % (11.5-14.5) Platelet Count 231 x10^3/uL (140-400) Neutrophils (%) (Auto) 75 % (31-73) H Lymphocytes (%) (Auto) 17 % (24-48) L Monocytes (%) (Auto) 7 % (0-9) Eosinophils (%) (Auto) 0 % (0-3) Basophils (%) (Auto) 1 % (0-3) Neutrophils # (Auto) 4.5 x10^3uL (1.8-7.7) Lymphocytes # (Auto) 1.0 x10^3/uL (1.0-4.8) Monocytes # (Auto) 0.4 x10^3/uL (0.0-1.1) Eosinophils # (Auto) 0.0 x10^3/uL (0.0-0.7) Basophils # (Auto) 0.1 x10^3/uL (0.0-0.2) Sodium Level 141 mmol/L (136-145) Potassium Level 3.6 mmol/L (3.5-5.1) Chloride Level 104 mmol/L (98-107) Carbon Dioxide Level 25 mmol/L (21-32) Anion Gap 12 (6-14) Blood Urea Nitrogen 16 mg/dL (7-20) Creatinine 0.8 mg/dL (0.6-1.0) Estimated GFR (Cockcroft-Gault) 69.2 BUN/Creatinine Ratio 20 (6-20) Glucose Level 130 mg/dL (70-99) H Calcium Level 8.9 mg/dL (8.5-10.1) Magnesium Level 2.1 mg/dL (1.8-2.4) Total Bilirubin 0.4 mg/dL (0.2-1.0) Aspartate Amino Transferase (AST) 24 U/L (15-37) Alanine Aminotransferase (ALT) 18 U/L (14-59) Alkaline Phosphatase 82 U/L (46-116) Creatine Kinase 83 U/L (26-192) Creatine Kinase MB (Mass) 1.7 ng/mL (0.0-3.6) Creatine Kinase MB Relative Index 2.0 % (0-4) OG-Bdb-L-Type Natriuretic Peptide 331 pg/mL (0-449) Total Protein 7.1 g/dL (6.4-8.2) Albumin 3.6 g/dL (3.4-5.0) Albumin/Globulin Ratio 1.0 (1.0-1.7) Lipase 134 U/L (73-393) EKG EKG @1154 NSR at 70bpm, NO ST elevation, QRS 88ms, QT/QTc 432/470ms Radiology/Procedures Radiology/Procedures [] Course & Med Decision Making Course & Med Decision Making Pertinent Lab studies reviewed. (See chart for details) Patient with low cardiac risk factors presents with report of sudden chest pain which has since resolved. EKG stable. Labs obtained and posted to chart. Troponi n within normal limits. HEART score 4. D-dimer pending. Repeat troponin ordered. Prior to d-dimer and repeat troponin patient with decision to leave AGAINST MEDICAL ADVICE. Patient advised of risks of leaving AGAINST MEDICAL ADVICE including permanent disability and/or . Patient and spouse aware of risks and willing to accept them. Discussed findings and plan with patient and family, who acknowledge understanding and agreement. Dragon Disclaimer Dragon Disclaimer This electronic medical record was generated, in whole or in part, using a voice recognition dictation system. Departure Departure: Impression: Primary Impression: Chest pain Additional Impressions: Left against medical advice Elevated d-dimer Disposition: AGAINST MEDICAL ADVICE Condition: GUARDED Referrals: LYNN DENTON MD (PCP) Patient Instructions: Discharge Against Medical Advice HEART Score for Chest Pain PTs The HEART Score for CP Pts HEART Score for Chest Pain: HEART Score for Chest Pain Response (Comments) Value History Moderately Suspicious 1 ECG Normal 0 Age > 65 2 Risk Factors 1 or 2 Risk Factors 1 Troponin < Normal Limit 0 Total 4 Risk Factors: Risk Factors: DM, Current or recent (<one month) smoker, HTN, HLP, family history of CAD, obesity. Risk Scores: Score 0 - 3: 2.5% MACE over next 6 weeks - Discharge Home Score 4 - 6: 20.3% MACE over next 6 weeks - Admit for Clinical Observation Score 7 - 10: 72.7% MACE over next 6 weeks - Early Invasive Strategies Problem Qualifiers Primary Impression: Chest pain Chest pain type: unspecified Qualified Codes: R07.9 - Chest pain, unspecified KARRI PERES DO Jun 28, 2019 12:34
--- NOTE | 2019-06-29 06:40 | EKG ---
[address] [address] Test Date: 2019-06-28 Test Time: 11:54:17 Pat Name: ABY JONES Department: Room: Gender: F Weight And Balance Control Agent: : 1940 Requested By: KARRI PERES Order Number: [id number] Reading MD: Measurements Intervals [place] Rate: 70 P: 60 OK: 104 QRS: -52 QRSD: 88 T: 7 QT: 432 QTc: 470 Interpretive Statements SINUS RHYTHM ABNORMAL LEFT AXIS DEVIATION LEFT ANTERIOR FASCICULAR BLOCK QRS(T) CONTOUR ABNORMALITY CONSIDER ANTEROSEPTAL MYOCARDIAL DAMAGE ABNORMAL ECG RI6.01 No previous ECG available for comparison
== END 2019-06-28 13:24 | disposition left against medical advice (07) ==
LOC: ER 11:43
DX: R07.89 Other chest pain (principal); R79.1 Abnormal coagulation profile; K21.9 Gastro-esophageal reflux disease without esophagitis; E78.00 Pure hypercholesterolemia, unspecified; I10 Essential (primary) hypertension; F03.90 Unspecified dementia, unspecified severity, without behavioral disturbance, psychotic disturbance, mood disturbance, and anxiety; Z86.73 Personal history of transient ischemic attack (TIA), and cerebral infarction without residual deficits; Z90.49 Acquired absence of other specified parts of digestive tract; Z90.710 Acquired absence of both cervix and uterus; Z88.2 Allergy status to sulfonamides; Z88.1 Allergy status to other antibiotic agents
CPT/HCPCS: 36415; 80053; 82553; 83690; 83735; 83880; 84484; 85025; 85379; 85610; 85730; 93005; 99285-25; J7030

== ENCOUNTER 2019-07-17 10:45 | Emergency (ER) | payer OTHER ==
[2019-07-17 11:01] VITALS: BP 147/89
[2019-07-17 11:21] LABS: BASO % 1 % (0-3); EOS % 1 % (0-3); HEMATOCRIT 40.4 % (36.0-47.0); HEMOGLOBIN 14.2 g/dL (12.0-15.5); LYMPH # 1.4 x10^3/uL (1.0-4.8); LYMPH % 36 % (24-48); MEAN CORPUSCULAR HEMOGLOBIN 34 pg (25-35); MEAN CORPUSCULAR HGB CONC 35 g/dL (31-37); MEAN CORPUSCULAR VOLUME 97 fL (79-100); MONO # 0.4 x10^3/uL (0.0-1.1); MONO % 10 % (0-9); NEUT % 52 % (31-73); PLATELET COUNT 247 x10^3/uL (140-400); RED BLOOD COUNT 4.15 x10^6/uL (3.50-5.40); RED CELL DISTRIBUTION WIDTH 12.4 % (11.5-14.5); WHITE BLOOD COUNT 3.9 x10^3/uL (4.0-11.0)
--- NOTE | 2019-07-17 11:25 | EKG ---
[address] [address] Test Date: 2019-07-17 Test Time: 10:52:51 Pat Name: ABY JONES Department: Room: Gender: F Echocardiograph Technician: : 1940 Requested By: BERE BARRETT Order Number: [id number] Reading MD: Measurements Intervals [place] Rate: 73 P: 58 DC: 134 QRS: -46 QRSD: 86 T: 19 QT: 414 QTc: 460 Interpretive Statements SINUS RHYTHM ABNORMAL LEFT AXIS DEVIATION R-S TRANSITION ZONE IN V LEADS DISPLACED TO THE LEFT LEFT ANTERIOR FASCICULAR BLOCK QRS(T) CONTOUR ABNORMALITY CONSIDER ANTEROSEPTAL MYOCARDIAL DAMAGE ABNORMAL ECG RI6.01 No previous ECG available for comparison
[2019-07-17] MEDS ORDERED: NITROGLYCERIN SUBLINGUAL 0.4 MG BOTTLE OF 25. SL PRN (11:30)
[2019-07-17 11:32] LABS: ALBUMIN 3.6 g/dL (3.4-5.0); ALBUMIN/GLOBULIN RATIO 0.9 (1.0-1.7); CALCIUM 9.1 mg/dL (8.5-10.1); CREATININE 0.9 mg/dL (0.6-1.0); GFR 60.4; TOTAL PROTEIN 7.5 g/dL (6.4-8.2)
[2019-07-17 11:33] LABS: POTASSIUM 3.9 mmol/L (3.5-5.1)
--- NOTE | 2019-07-17 11:38 | RAD ---
CHEST AP ONLY History: Chest pain Comparison: January 10, 2019 Findings: No consolidation or pleural effusion. Normal heart size. Postop changes lower cervical spine. Impression: 1. No acute cardiopulmonary process. Electronically signed by: Benjamin Nava DO (07/17/2019 11:36 AM) [facility]
--- NOTE | 2019-07-17 14:18 | ED.ADGEN ---
Past History Past Medical History: Dementia, GERD, High Cholesterol, Hypertension, TIA Past Surgical History: Cholecystectomy, Hysterectomy Smoking: Non-smoker Alcohol Use: None Drug Use: None Adult General Chief Complaint Chief Complaint Chest pain HPI HPI Patient is a 79-year-old female with history of dementia, hypertension, dyslipidemia, and TIA who presents with recurrent chest pain. Symptom onset was 8 hours ago while sleeping. Pain is described as substernal described as pressure and burning. It is nonradiating and associated with nausea and vomiting. Nonexertional. Patient took baby aspirin prior to ED arrival without relief of symptoms. Of note, patient's been evaluated for these symptoms multiple times in the ED past. Admission offered in the emergency department which is usually declined. Patient has not follow-up with PCP or had outpatient cardiac stress testing. Denies abdominal pain, tenderness, nausea vomiting. No back pain. No fever chills or sweats. No additional symptoms or complaints. History obtained from patient and patient's spouse. Review of Systems Review of Systems Review symptoms as per history of present illness. All other review symptoms are negative. All other systems were reviewed and found to be within normal limits, except as documented in this note. Current Medications Current Medications Current Medications Medications (Trade) Dose Ordered Sig/Sweta Start Time Stop Time Status Last Admin Dose Admin Nitroglycerin (Nitrostat) 0.4 mg PRN Q5MIN PRN 07/17/19 11:30 07/17/19 12:14 DC Allergies Allergies Allergies Coded Allergies Type Severity Reaction Last Updated Verified Sulfa (Sulfonamide Antibiotics) Allergy Intermediate rash 01/10/19 No tetracycline Allergy Intermediate rash 01/10/19 No Physical Exam Physical Exam Constitutional: Well developed, well nourished, no acute distress, non-toxic appearance. [] HENT: Normocephalic, atraumatic, bilateral external ears normal, oropharynx moist, nose normal. [] Eyes: PERRLA, EOMI, conjunctiva mitchell. [] Neck: Normal range of motion, no tenderness, supple. [] Cardiovascular:Heart rate regular rhythm, no murmur [] Lungs & Thorax: Bilateral breath sounds clear to auscultation [] Abdomen: Bowel sounds normal, soft, no tenderness[] Skin: Warm, dry. [] Back: No tenderness, no CVA tenderness. [] Extremities: No tenderness, no edema. [] Neurologic: Alert and oriented X 1, normal motor function, normal sensory function, no focal deficits noted. [] Psychologic: Affect normal, judgement normal, mood normal. [] Current Patient Data Vital Signs Vital Signs Date Time Temp Pulse Resp B/P (MAP) Pulse Ox O2 Delivery O2 Flow Rate FiO2 07/17/19 11:01 73 18 100 Room Air Lab Results Laboratory Tests Test 07/17/19 11:01 White Blood Count 3.9 x10^3/uL (4.0-11.0) L Red Blood Count 4.15 x10^6/uL (3.50-5.40) Hemoglobin 14.2 g/dL (12.0-15.5) Hematocrit 40.4 % (36.0-47.0) Mean Corpuscular Volume 97 fL (79-100) Mean Corpuscular Hemoglobin 34 pg (25-35) Mean Corpuscular Hemoglobin Concent 35 g/dL (31-37) Red Cell Distribution Width 12.4 % (11.5-14.5) Platelet Count 247 x10^3/uL (140-400) Neutrophils (%) (Auto) 52 % (31-73) Lymphocytes (%) (Auto) 36 % (24-48) Monocytes (%) (Auto) 10 % (0-9) H Eosinophils (%) (Auto) 1 % (0-3) Basophils (%) (Auto) 1 % (0-3) Neutrophils # (Auto) 2.0 x10^3uL (1.8-7.7) Lymphocytes # (Auto) 1.4 x10^3/uL (1.0-4.8) Monocytes # (Auto) 0.4 x10^3/uL (0.0-1.1) Eosinophils # (Auto) 0.0 x10^3/uL (0.0-0.7) Basophils # (Auto) 0.0 x10^3/uL (0.0-0.2) Sodium Level 134 mmol/L (136-145) L Potassium Level 3.9 mmol/L (3.5-5.1) Chloride Level 99 mmol/L (98-107) Carbon Dioxide Level 23 mmol/L (21-32) Anion Gap 12 (6-14) Blood Urea Nitrogen 19 mg/dL (7-20) Creatinine 0.9 mg/dL (0.6-1.0) Estimated GFR (Cockcroft-Gault) 60.4 BUN/Creatinine Ratio 21 (6-20) H Glucose Level 102 mg/dL (70-99) H Calcium Level 9.1 mg/dL (8.5-10.1) Total Bilirubin 1.0 mg/dL (0.2-1.0) Aspartate Amino Transferase (AST) 203 U/L (15-37) H Alanine Aminotransferase (ALT) 211 U/L (14-59) H Alkaline Phosphatase 99 U/L (46-116) Troponin I Quantitative < 0.017 ng/mL (0-0.055) Total Protein 7.5 g/dL (6.4-8.2) Albumin 3.6 g/dL (3.4-5.0) Albumin/Globulin Ratio 0.9 (1.0-1.7) L Lipase 169 U/L (73-393) EKG EKG [EKG: Reviewed] Radiology/Procedures Radiology/Procedures Rest x-ray: Reviewed[] Course & Med Decision Making Course & Med Decision Making Pertinent Labs and Imaging studies reviewed. (See chart for details) [Recurrent chest pain with Elevated transaminases. Ultrasound ordered and admission offered. Patient was and spouse additional agreed to additional tests eloped without warning. Patient offered IV in. Police contacted to ensure IV was removed ] Final Impression Final Impression [1 chest pain 2. Transaminitis] Dragon Disclaimer Dragon Disclaimer This electronic medical record was generated, in whole or in part, using a voice recognition dictation system. BERE BARRETT DO Jul 17, 2019 14:18
== END 2019-07-17 11:54 | disposition left against medical advice (07) ==
LOC: ER 10:45
DX: R07.89 Other chest pain (principal); R74.0 Nonspecific elevation of levels of transaminase and lactic acid dehydrogenase [LDH]; F03.90 Unspecified dementia, unspecified severity, without behavioral disturbance, psychotic disturbance, mood disturbance, and anxiety; K21.9 Gastro-esophageal reflux disease without esophagitis; E78.00 Pure hypercholesterolemia, unspecified; I10 Essential (primary) hypertension; Z86.73 Personal history of transient ischemic attack (TIA), and cerebral infarction without residual deficits; Z90.49 Acquired absence of other specified parts of digestive tract; Z90.710 Acquired absence of both cervix and uterus; Z88.2 Allergy status to sulfonamides; Z88.1 Allergy status to other antibiotic agents
CPT/HCPCS: 36415; 71045; 80053; 83690; 84484; 85025; 93005; 99285

== ENCOUNTER 2020-03-10 10:38 | Emergency (ER) | payer MEDICAID, MEDICARE, OTHER ==
[~2020-03-10] VITALS: Ht 162.6 cm; Wt 62.0 kg
[~2020-03-10 10:38] MED LIST changes: +MULT-445 PO; -MULT1TAB52 PO; +SIMV40TA18 PO; -SIMV40TA3 PO; +VITA-8 PO; -VITA400C36 PO
[2020-03-10 10:46] VITALS: BP 141/92
[2020-03-10 11:24] LABS: BASO # 0.1 x10^3/uL (0.0-0.2); BASO % 1 % (0-3); EOS # 0.1 x10^3/uL (0.0-0.7); EOS % 2 % (0-3); HEMATOCRIT 38.6 % (36.0-47.0); HEMOGLOBIN 13.4 g/dL (12.0-15.5); LYMPH # 1.1 x10^3/uL (1.0-4.8); LYMPH % 28 % (24-48); MEAN CORPUSCULAR HEMOGLOBIN 35 pg (25-35); MEAN CORPUSCULAR HGB CONC 35 g/dL (31-37); MEAN CORPUSCULAR VOLUME 100 fL (79-100); MONO # 0.4 x10^3/uL (0.0-1.1); MONO % 9 % (0-9); NEUT # 2.4 x10^3uL (1.8-7.7); NEUT % 60 % (31-73); PLATELET COUNT 211 x10^3/uL (140-400); RED BLOOD COUNT 3.87 x10^6/uL (3.50-5.40); RED CELL DISTRIBUTION WIDTH 12.6 % (11.5-14.5); WHITE BLOOD COUNT 4.1 x10^3/uL (4.0-11.0)
--- NOTE | 2020-03-10 11:28 | RAD ---
CT HEAD WO CONTRAST History:Left eye bruising, confusion, unknown injury Comparison: May 10, 2018. Technique: Noncontrast CT imaging was performed of the head. Exposure: One or more of the following individualized dose reduction techniques were utilized for this examination: 1. Automated exposure control 2. Adjustment of the mA and/or kV according to patient size 3. Use of iterative reconstruction technique. Findings: No acute intracranial hemorrhage is identified. There is again [id number] supratentorial atrophy somewhat greater of the frontal lobes, ventricular size stable and proportionate to sulcal spaces. There is no new intra-axial mass effect, midline shift, or extra-axial fluid collection. Casiano-white differentiation of the major vascular territories is maintained. Visualized paranasal sinuses and the mastoid air cells are aerated. No acute calvarial abnormality is identified. Impression: 1. No acute intracranial abnormality is identified. There is again supratentorial atrophy somewhat greater of the frontal lobes. Electronically signed by: Bigg Barnett MD (03/10/2020 11:25 AM) [id number]
[2020-03-10 11:32] LABS: CALCIUM 8.6 mg/dL (8.5-10.1); CREATININE 1.1 mg/dL (0.6-1.0); GFR 47.9; POTASSIUM 3.7 mmol/L (3.5-5.1)
--- NOTE | 2020-03-10 11:33 | PHYS DOC ---
Past History Past Medical History: Dementia, GERD, High Cholesterol, Hypertension, TIA Past Surgical History: Cholecystectomy, Hysterectomy Smoking: Non-smoker Alcohol Use: None Drug Use: None General Adult EDM: Chief Complaint: EYE PROBLEMS HPI: HPI: Patient is a 79-year-old female presenting to the ED with a chief complaint of bruising to her left eye area. Patient states that she noticed it yesterday and got worse today. Patient denies any obvious injuries. Patient denies being on blood thinners. Patient does have history of dementia and hypertension. Patient denies any visual changes in the left eye. Review of Systems: Review of Systems: Constitutional: Denies fever or chills Eyes: Denies change in visual acuity. Complains of bruising around her left eye HENT: Denies nasal congestion or sore throat Respiratory: Denies cough or shortness of breath Cardiovascular: Denies chest pain or edema GI: Denies abdominal pain, nausea, vomiting, bloody stools or diarrhea : Denies dysuria Musculoskeletal: Denies back pain or joint pain Neurologic: Denies headache, focal weakness or sensory changes Heart Score: Risk Factors: Risk Factors: DM, Current or recent (<one month) smoker, HTN, HLP, family history of CAD, obesity. Risk Scores: Score 0 - 3: 2.5% MACE over next 6 weeks - Discharge Home Score 4 - 6: 20.3% MACE over next 6 weeks - Admit for Clinical Observation Score 7 - 10: 72.7% MACE over next 6 weeks - Early Invasive Strategies Allergies: Allergies: Allergies Coded Allergies Type Severity Reaction Last Updated Verified Sulfa (Sulfonamide Antibiotics) Allergy Intermediate rash 01/10/19 No tetracycline Allergy Intermediate rash 01/10/19 No Physical Exam: PE: Constitutional: Well developed, well nourished, no acute distress, non-toxic appearance. [] HENT: Normocephalic, atraumatic Eyes: EOMI, bruising and ecchymosis in the periorbital area of the left eye Neck: Normal range of motion, Supple Cardiovascular:Heart rate regular rhythm Lungs & Thorax: Bilateral breath sounds clear to auscultation [] Abdomen: Bowel sounds normal, soft, no tenderness Extremities: No tenderness, ROM intact Neurologic: Alert Current Patient Data: Labs: Laboratory Tests Test 03/10/20 11:06 White Blood Count 4.1 x10^3/uL (4.0-11.0) Red Blood Count 3.87 x10^6/uL (3.50-5.40) Hemoglobin 13.4 g/dL (12.0-15.5) Hematocrit 38.6 % (36.0-47.0) Mean Corpuscular Volume 100 fL (79-100) Mean Corpuscular Hemoglobin 35 pg (25-35) Mean Corpuscular Hemoglobin Concent 35 g/dL (31-37) Red Cell Distribution Width 12.6 % (11.5-14.5) Platelet Count 211 x10^3/uL (140-400) Neutrophils (%) (Auto) 60 % (31-73) Lymphocytes (%) (Auto) 28 % (24-48) Monocytes (%) (Auto) 9 % (0-9) Eosinophils (%) (Auto) 2 % (0-3) Basophils (%) (Auto) 1 % (0-3) Neutrophils # (Auto) 2.4 x10^3uL (1.8-7.7) Lymphocytes # (Auto) 1.1 x10^3/uL (1.0-4.8) Monocytes # (Auto) 0.4 x10^3/uL (0.0-1.1) Eosinophils # (Auto) 0.1 x10^3/uL (0.0-0.7) Basophils # (Auto) 0.1 x10^3/uL (0.0-0.2) Vital Signs: Vital Signs Date Time Temp Pulse Resp B/P (MAP) Pulse Ox O2 Delivery O2 Flow Rate FiO2 03/10/20 10:46 98.3 71 16 141/92 (108) 97 Room Air EKG: EKG: [] Radiology/Procedures: Radiology/Procedures: [] Impressions: CT HEAD Impression: 1. No acute intracranial abnormality is identified. There is again supratentorial atrophy somewhat greater of the frontal lobes Course & Med Decision Making: Course & Med Decision Making Pertinent Labs and Imaging studies reviewed. (See chart for details) Ordered labs and CT of the head CT head is negative for an acute intracranial process. Patient now states that she has had similar symptoms in the past but not this bad. Patient instructed to set up an appointment with her PCP and follow-up as an outpatient. I have told patient to return back to the ED if she has visual changes. Discussed results and plan of care with patient. Patient is instructed to follow up with PCP in one to 2 days. Appropriate discharge instructions given to patient to return to the ED or to seek immediate medical evaluation. Patient is instructed to return to the ED if symptoms worsen or if any concerns. Dragon Disclaimer: Dragon Disclaimer: This electronic medical record was generated, in whole or in part, using a voice recognition dictation system. Departure Departure: Impression: Primary Impression: Periorbital ecchymosis Disposition: HOME/RESIDENCE PRIOR TO ADM Condition: STABLE Referrals: LYNN DENTON MD (PCP) Patient Instructions: Rash Additional Instructions: Discussed results and plan of care with patient. Patient is instructed to follow up with PCP in one to 2 days. Appropriate discharge instructions given to patient to return to the ED or to seek immediate medical evaluation. Patient is instructed to return to the ED if symptoms worsen or if any concerns. Justification of Admission: Justification of Admission: Justification of Admission Dx: FAM Herrera DO Mar 10, 2020 11:33
[2020-03-10 11:39] LABS: ALBUMIN 3.2 g/dL (3.4-5.0); TOTAL BILIRUBIN 0.4 mg/dL (0.2-1.0); TOTAL PROTEIN 6.4 g/dL (6.4-8.2)
== END 2020-03-10 11:57 | disposition home or self-care (01) ==
LOC: ER 10:38
DX: S00.12XA Contusion of left eyelid and periocular area, initial encounter (principal); K21.9 Gastro-esophageal reflux disease without esophagitis; E78.00 Pure hypercholesterolemia, unspecified; I10 Essential (primary) hypertension; Z86.73 Personal history of transient ischemic attack (TIA), and cerebral infarction without residual deficits; Z90.710 Acquired absence of both cervix and uterus; Z79.899 Other long term (current) drug therapy; Z90.49 Acquired absence of other specified parts of digestive tract; X58.XXXA Exposure to other specified factors, initial encounter; Y93.89 Activity, other specified; Y92.89 Other specified places as the place of occurrence of the external cause; Y99.8 Other external cause status
CPT/HCPCS: 36415; 70450; 80053; 85025; 85610; 99284

== ENCOUNTER → 2020-11-24 | Outpatient (CLI) | payer MEDICARE, OTHER ==
[~2020-11-24] MED LIST changes: +LISI10TA16 PO; -LISI10TA2 PO; -LISI1TAB19 PO; +LISI1TAB37 PO
--- NOTE | 2020-11-24 14:07 | RAD ---
EXAMINATION: CT HEAD/BRAIN WO (CT HEAD WITHOUT IV CONTRAST) CLINICAL HISTORY: ALZHEIMER'S W/LATE ONSET TECHNIQUE: Serial axial images without IV contrast were obtained from the vertex to the foramen magnu m. CT Dose Reduction Employed: One or more of the following individualized dose reduction techniques wer e utilized for this examination: 1. Automated exposure control 2. Adjustment of the mA and/or kV ac cording to patient size 3. Use of iterative reconstruction technique. COMPARISON: 03/10/2020 FINDINGS: Acute Change: No evidence of an acute infarct or other acute parenchymal process. Hemorrhage: No evidence of acute intracranial hemorrhage. Mass Lesion/Mass Effect: No evidence of intracranial mass or extraaxial fluid collection. No signific ant mass effect. Chronic Change: Atherosclerotic calcification of the bilateral carotid siphons. Parenchyma: Mild to moderate supratentorial volume loss asymmetrically prominent in the frontal lobes , similar to prior study Parenchyma otherwise within normal limits for age. Ventricles: Ventricular enlargement concordant with degree of parenchymal volume loss. Paranasal Sinuses and Skull Base: Visualized paranasal sinuses clear. Visualized skull base and soft tissues unremarkable. IMPRESSION: No evidence of acute intracranial abnormality or significant interval change. Electronically signed by: Demetri Shukla DO (11/24/2020 2:04 PM) [id number]
== END ==
LOC: CT 13:31
PROVIDERS: ATTEND Psychiatry & Neurology Neurology with Special Qualifications in Child Neurology
DX: G30.1 Alzheimer's disease with late onset (principal)
CPT/HCPCS: 70450